=== PATIENT | male | born 1965 | race Caucasian/White ===

== ENCOUNTER 2022-05-24 18:07 | Inpatient (IN) | payer MEDICAID, SELFPAY ==
[2022-05-24] VITALS (8 sets, daily range): BP systolic 156–181; BP diastolic 84–101; PULSE 76–111; RESP 18–26; TEMP 36.4–36.7; O2SAT 92–96; BMI 35.9; BMI 28.8
[2022-05-24 18:39] LABS: Basophils # 0.1 10^3/uL (0.0-0.1); Basophils % 0.3 %; Hematocrit 39.2 % (42.0-52.0); Hemoglobin 13.4 g/dL (11.7-16.6); Lymphocytes # 1.8 10^3/uL (0.8-4.8); Lymphocytes % 7.3 %; Mean Corpuscular HGB Conc 34.2 g/dL (30.0-36.0); Mean Corpuscular Hemoglobin 29.8 pg (28.0-34.0); Mean Corpuscular Volume 87.3 fl (80-94); Mean Platelet Volume 9.9 fL (7.4-10.4); Monocytes # 0.9 10^3/uL (0.2-0.9); Monocytes % 3.6 %; Neutrophils # 22.08 10^3/uL (1.8-7.7); Neutrophils % 88.2 %; Nucleated Red Blood Cells % 0 %; Platelet Count 239 10^3/cmm (130-400); Red Blood Count 4.49 10^6/uL (4.1-5.3); Red Cell Distribution Width 13.2 % (12.1-15.1); White Blood Count 25.1 10^3/uL (4.0-10.0)
--- NOTE | 2022-05-24 18:48 | ED_ITS ---
HPI - General Adult General: Chief complaint: Abdominal Pain Stated complaint: abdomen pain and back pain Time Seen by Provider: 05/24/22 18:47 History of Present Illness: Patient is a 56-year-old male with a history of umbilical hernia presenting to the emergency room with acute onset of abdominal pain since yesterday at 3 PM. Patient said that he has had nausea/vomiting and significant diffuse abdominal pain. Patient noticed that her hernia has been stuck and thus was causing his pain. Patient also reports blood in the stool. Patient denies any cough, runny nose, sore throat, fever or chills. Patient denies any complaints at this time. No other prior abdominal surgery. Onset: 3pm yesterday Duration:ongoing Location:home Severity:moderate Associated symptoms: Reports nausea and vomiting; Deny chest pain, dyspnea, rash or palpitations Review of Systems Const: Denies: fever(s) or chills Eyes: Denies: change in vision ENMT: Denies: mouth pain Card: Denies: chest pain or palpitations Resp: Denies: dyspnea or non-productive cough GI: Reports: abdominal pain, nausea, vomiting and other (+blood in stool); Denies: diarrhea : Denies: dysuria Musc: Denies: extremity pain Skin/Breast: Denies: rash or new lesions Neuro: Denies: weakness in extremities Psych: Reports: other (Normal mood) Rajesh/Lymph: Denies: easy bruising [facility] ED PFSH: Medical History (Updated 05/25/22 @ 11:49 by Greyson Figueroa MD) Pneumatosis intestinalis After discussion with radiologist simonizer, it is a contained perforation of sigmoid colon. Umbilical hernia Social History Smoking and tobacco status: never smoked Alcohol intake: never Physical Exam Const: COMMON NORMALS: alert HENMT: COMMON NORMALS: atraumatic HEAD & SCALP: atraumatic MOUTH: moist mucous membranes not abnormal Eye: COMMON NORMALS: EOMs intact bilaterally and conjunctivae normal CONJUNCTIVA: Yes conjunctivae normal Neck/C-Spine: COMMON NORMALS: full ROM and supple Resp: COMMON NORMALS: normal respiratory effort and clear to auscultation bilaterally AUSCULTATION: clear to auscultation bilaterally Cardio: COMMON NORMALS: regular rate RATE: regular rate GI: COMMON NORMALS: Soft to palpation PALPATION: Yes Soft to palpation OTHER: + Moderate diffuse abdominal tenderness to palpation, umbilical hernia partially reducible. NO guarding rebound, guarding, rigidity. No CVA tenderness to percussion. Neg Mendez/Neg McBurney's point tenderness, no suprabupic tenderness to palpation. Extremity: COMMON NORMALS: full ROM Neuro: SENSORIUM/ORIENTATION: Yes alert MOTOR EXAM: No Abnormal motor strength present and Other motor observations present (no focal motor deficits) Psych: COMMON NORMALS: speech normal SPEECH: Yes normal speech MOOD & AFFECT: Yes euthymic mood Course Vital Signs: Vital signs: Vital Signs Temperature 97.4 F L 05/25/22 04:00 Pulse Rate 96 05/25/22 15:18 Respiratory Rate 16 05/25/22 15:40 Blood Pressure 159/92 05/25/22 15:18 Pulse Oximetry 91 05/25/22 15:40 Oxygen Delivery Me thod 05/25/22 15:18 MDM - General Adult Medical Decision Making 56-year-old male with history of umbilical hernia presenting to the emergency with diffuse abdominal pain, nausea vomiting and possible blood in the stool. On exam, patient has a partially reducible umbilical hernia. Patient has diffuse abdominal tenderness palpation. Patient is hemodynamically stable. White count 25.1. Given concerns for umbilical hernia incarceration vs s trangulation, I discussed immediately with Dr. Figueroa. Dr. Figueroa assessed patient at bedside recommend CT scan at this time. CT abdomen pelvis showed multiple areas of diverticulitis with pneumatosis intestinalis. Initially, patient was noted to have partial small bowel obstruction. Discussed all these findings with Dr. Figueroa who recommend n.p.o. at this time with IV antibiotics. Dr. Figueroa will decide whether to take patient to the OR tomorrow morning. Patient has NG tube placed. Disposition: admission Lab Data : 05/25/22 05:22 05/25/22 05:22 Radiology Impressions Abdomen/Pelvis CTA 05/24/22 19:19 IMPRESSION: 1. Sigmoid diverticulitis with matted loops of bowel. There is pneumatosis of bowel and colon and a probable loculated perforation. No gas in the portal vein or hepatic portal venous radicles. Underlying neoplasm may present a similar picture. 2. Partial small bowel obstruction with the point of transition in the pelvis at the site of diverticulitis. Other causes of obstruction such as intermittent or partial closed loop obstruction not excluded. 3. There is a [id number] amount of dense free fluid in the abdomen that may represent blood. 4. Bilateral inguinal hernias with a segment of descending colon and proximal sigmoid in the left inguinal hernia without evidence of obstruction. 5. Moderate recurrent umbilical hernia. 6. Cholelithiasis without acute cholecystitis. THIS REPORT CONTAINS FINDINGS THAT MAY BE CRITICAL TO PATIENT CARE. The findings were verbally communicated via telephone conference with QING DUNBAR at 9:17 PM CDT on 05/24/2022. The findings were acknowledged and understood. ADDENDUM: 05/24/222150 A 2nd review of the images was done in conference with . This is to clarify that the gas bubbles seen in the pelvis are likely related to diverticulitis with contained perforation and gas in the bowel and colonic lumen rather than pneumatosis. Chest X-Ray 05/24/22 22:38 IMPRESSION: NG tube in appropriate position. Small-bowel obstruction as seen on the previous exam. Laboratory Results WBC 25.1 10^3/uL (4.0-10.0) H 05/24/22 18:34 RBC 4.49 10^6/uL (4.1-5.3) 05/24/22 18:34 Hgb 13.4 g/dL (11.7-16.6) 05/24/22 18:34 Hct 39.2 % (42.0-52.0) L 05/24/22 18:34 MCV 87.3 fl (80-94) 05/24/22 18:34 MCH 29.8 pg (28.0-34.0) 05/24/22 18:34 MCHC 34.2 g/dL (30.0-36.0) 05/24/22 18:34 RDW 13.2 % (12.1-15.1) 05/24/22 18:34 Plt Count 239 10^3/cmm (130-400) 05/24/22 18:34 MPV 9.9 fL (7.4-10.4) 05/24/22 18:34 Neut % (Auto) 88.2 % 05/24/22 18:34 Lymph % (Auto) 7.3 % 05/24/22 18:34 [place] % (Auto) 3.6 % 05/24/22 18:34 Eos % (Auto) 0.0 % 05/24/22 18:34 Baso % (Auto) 0.3 % 05/24/22 18:34 Neut # (Auto) 22.08 10^3/uL (1.8-7.7) H 05/24/22 18:34 Lymph # (Auto) 1.8 10^3/uL (0.8-4.8) 05/24/22 18:34 [place] # (Auto) 0.9 10^3/uL (0.2-0.9) 05/24/22 18:34 Eos # (Auto) 0.0 10^3/uL (0.0-0.8) 05/24/22 18:34 Baso # (Auto) 0.1 10^3/uL (0.0-0.1) 05/24/22 18:34 Nucleated RBC % (auto) 0 % 05/24/22 18:34 Nucleated RBCs # 0.0 /100WBC 05/24/22 18:34 PT 14.40 SECONDS (12.1-14.9) 05/24/22 19:43 INR 1.08 (0.8-1.2) 05/24/22 19:43 APTT 17.2 SECONDS (23.9-36.7) L 05/24/22 19:43 Sodium 137 mmol/L (136-145) 05/24/22 18:54 Potassium 4.1 mmol/L (3.5-5.1) 05/24/22 18:54 Chloride 97 mmol/L (98-107) L 05/24/22 18:54 Carbon Dioxide 22 mmol/L (22-29) 05/24/22 18:54 Anion Gap 22.1 (5-19) H 05/24/22 18:54 BUN 20 mg/dL (6-20) 05/24/22 18:54 Creatinine 0.7 mg/dL (0.7-1.2) 05/24/22 18:54 GFR Calculation 116.2 mL/min (90-130) 05/24/22 18:54 Glucose 137 mg/dL (65-115) H 05/24/22 18:54 Calculated Osmolality 289 mOsm/kg (285-295) 05/24/22 18:54 Lactate 1.6 mmol/L (0.5-2.2) 05/24/22 18:34 Calcium 9.7 mg/dL (8.5-10.5) 05/24/22 18:54 Total Bilirubin 0.6 mg/dL (0.15-1.2) 05/24/22 18:54 AST 14 U/L (0-40) 05/24/22 18:54 ALT 11 U/L (0-41) 05/24/22 18:54 Alkaline Phosphatase 87 U/L (40-130) 05/24/22 18:54 C-Reactive Protein 284.4 mg/L (0.0-4.9) H 05/24/22 18:54 Total Protein 6.9 g/dL (6.6-8.7) 05/24/22 18:54 Albumin 4.1 g/dL (3.5-5.2) 05/24/22 18:54 Globulin 2.8 g/dL (1.3-4.6) 05/24/22 18:54 Lipase 8 U/L (13-60) L 05/24/22 18:54 TSH 3.02 uIU/mL (0.27-4.20) 05/24/22 18:54 Urine Color Yellow (Yellow) 05/24/22 21:10 Urine Appearance Clear (CLEAR) 05/24/22 21:10 Urine pH 5 (5-7) 05/24/22 21:10 Ur Specific [place] 1.010 (1.005-1.030) 05/24/22 21:10 Urine Protein 1+ (Negative) H 05/24/22 21:10 Urine Glucose (UA) Norm (Normal) 05/24/22 21:10 Urine Ketones Negative (Negative) 05/24/22 21:10 Urine Blood Neg (Negative) 05/24/22 21:10 Urine Nitrate Negative (Negative) 05/24/22 21:10 Urine Bilirubin Neg (Negative) 05/24/22 21:10 Urine Urobilinogen Norm mg/dL (Negative) 05/24/22 21:10 Ur Leukocyte Esterase Negative (Negative) 05/24/22 21:10 Urine RBC 0-4 /hpf (0-2) H 05/24/22 21:10 Urine WBC 0-4 /hpf (0-5) H 05/24/22 21:10 Ur Squamous Epith Cells 0-4 /hpf (0-5) H 05/24/22 21:10 Amorphous Sediment Not Reportable 05/24/22 21:10 Urine Bacteria Trace /hpf (NONE) 05/24/22 21:10 Urine Mucus Trace /hpf 05/24/22 21:10 Urine Sperm 1+ /hpf 05/24/22 21:10 Imaging Data Other Imaging: Radiologist's impression: [address] [address] [address] Scan Report Signed with Addenda Patient: Aman Villa Unit #: [id number] : 1965 Age/Sex: 56 / M ADM Date: 05/24/22 Loc: ER Room/Bed: Attending Dr: Ordering Provider/Ordering MD: Qing Dunbar MD Date of Service: 05/24/22 Procedure(s): CT angio abdomen pelvis 86676 Accession Number(s): [id number] Report Number: [id number]/CT angio abdomen pelvis 57164 A 2nd review of the images was done in conference with .? This is to clarify that the gas bubbles seen in the pelvis are likely related to diverticulitis with contained perforation and gas in the bowel and colonic lumen rather than pneumatosis. ? Addendum Dictated By: ?Ino Briscoe MD Addendum Signed By: ?Ino Briscoe MD Signed Date/Time: 05/24/222150 Addendum Cosigned By: ? PROCEDURE INFORMATION: Exam: CTA Abdomen and Pelvis With Contrast, GI Bleeding Exam date and time: 05/24/2022 7:48 PM Age: 56 years old Clinical indication: Abdominal pain; Periumbilical; Prior surgery; Surgery type: Umbilical hernia repair. Patient HX: Patient with history of umbilical hernia was lifting heavy objects today and had sudden onset of severe pain. Thinks he has reherniated. Having rectal bleeding. Patient diaphoretic. ; Additional info: Abd pain, blood in stool TECHNIQUE: Imaging protocol: Computed tomographic angiography of the abdomen and pelvis with contrast. 3D rendering (Not supervised by radiologist): MIP and/or 3D reconstructed images were created by the technologist. Radiation optimization: All CT scans at this facility use at least one of these dose optimization techniques: automated exposure control; mA and/or kV adjustment per patient size (includes targeted exams where dose is matched to clinical indication); or iterative reconstruction. Contrast material: OMNI 350; Contrast volume: 95 ml; Contrast route: INTRAVENOUS (IV);? COMPARISON: No relevant prior studies available. RADIATION DOSE METRICS: Total DLP (mGy-cm): 852.47 FINDINGS: Pleural space: The visualized lung bases demonstrate pleural based discoid atelectasis in the lingula and left lower lobe. Aorta: There is mild atherosclerotic calcification of the abdominal aorta and its branches without aneurysm. Celiac trunk and mesenteric arteries: No occlusion or significant stenosis. Renal arteries: No occlusion or significant stenosis. Right iliac arteries: Mild atherosclerotic plaques at the origin of the right common iliac artery with less than 50% stenosis. Left iliac arteries: Mild atherosclerotic plaques at the origin of the left common iliac artery with less than 50% stenosis. Liver: Normal in size. There are no enhancing liver masses. Gallbladder and bile ducts: There are multiple calcified gallstones. There is no significant gallbladder wall thickening or pericholecystic fluid. There is no evidence of biliary ductal dilation. Pancreas: Unremarkable. No mass. No ductal dilation. Spleen: Unremarkable. No splenomegaly. Adrenal glands: Normal. No mass. Kidneys and ureters: Unremarkable. No solid mass. No hydronephrosis. Stomach and bowel: There are multiple dilated loops of small bowel in the upper abdomen with mildly thickened tomlinson. There is mild diverticulosis of the ascending colon (series 17, image 71), descending colon (series 12, image 143) and sigmoid (series 12, image 68). In the mid sigmoid, there is a large area of contained perforation and matted bowel loops (series 12, images 151 -178; series 17, images 43-51). There is pneumatosis and a point of transition. Findings suggest a developing abscess (series 12, images 155 - 179; series 17, images 42 - 52). Underlying neoplasm is not excluded. Appendix: No evidence of appendicitis. Intraperitoneal space: There is a small amount of blood in the peritoneal cavity surrounding the lower tip of the liver and bilateral paracolic gutters. There is no free air and no gas in the portal vein or hepatic portal venous radicles. Lymph nodes: Unremarkable. No enlarged lymph nodes. Urinary bladder: There is mild concentric thickening of the bladder wall that may be secondary to cystitis or underdistension. Reproductive: Unremarkable as visualized. Bones/joints: There is a mild stenosis in the proximal celiac trunk, likely related to an impression by the arcuate ligament. Soft tissues: There is a moderate-sized umbilical hernia containing adipose tissue. There are bilateral inguinal hernias. In the moderate-sized left inguinal hernia, there is a segment of descending colon and proximal sigmoid without evidence of obstruction. CT/CT angio abdomen pelvis 14513 IMPRESSION: 1. Sigmoid diverticulitis with matted loops of bowel. There is pneumatosis of bowel and colon and a probable loculated perforation. No gas in the portal vein or hepatic portal venous radicles.? Underlying neoplasm may present a similar picture. 2. Partial small bowel obstruction with the point of transition in the pelvis at the site of diverticulitis.? Other causes of obstruction such as intermittent or partial closed loop obstruction not excluded. 3. There is a ukqa-sn-hoezbwjv amount of dense free fluid in the abdomen that may represent blood. 4. Bilateral inguinal hernias with a segment of descending colon and proximal sigmoid in the left inguinal hernia without evidence of obstruction. 5. Moderate recurrent umbilical hernia. 6. Cholelithiasis without acute cholecystitis. ? THIS REPORT CONTAINS FINDINGS THAT MAY BE CRITICAL TO PATIENT CARE. The findings were verbally communicated via telephone conference with QING DUNBAR at 9:17 PM CDT on 05/24/2022. The findings were acknowledged and understood. ? 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
[2022-05-24] MEDS: sodium chloride 0.9% 1,000 ML 999 ML IV (18:59)
[2022-05-24] MEDS: HYDROmorphone 1 mg/mL INJ 1 mL 0.5 MG IVP (19:00)
[2022-05-24 19:06] LABS: Lactate (Lactic Acid level) 1.6 mmol/L (0.5-2.2)
--- NOTE | 2022-05-24 19:19 | CTR_ITS ---
PROCEDURE INFORMATION: Exam: CTA Abdomen and Pelvis With Contrast, GI Bleeding Exam date and time: 05/24/2022 7:48 PM Age: 56 years old Clinical indication: Abdominal pain; Periumbilical; Prior surgery; Surgery type: Umbilical hernia repair. Patient HX: Patient with history of umbilical hernia was lifting heavy objects today and had sudden onset of severe pain. Thinks he has reherniated. Having rectal bleeding. Patient diaphoretic. ; Additional info: Abd pain, blood in stool TECHNIQUE: Imaging protocol: Computed tomographic angiography of the abdomen and pelvis with contrast. 3D rendering (Not supervised by radiologist): MIP and/or 3D reconstructed images were created by the technologist. Radiation optimization: All CT scans at this facility use at least one of these dose optimization techniques: automated exposure control; mA and/or kV adjustment per patient size (includes targeted exams where dose is matched to clinical indication); or iterative reconstruction. Contrast material: OMNI 350; Contrast volume: 95 ml; Contrast route: INTRAVENOUS (IV); COMPARISON: No relevant prior studies available. RADIATION DOSE METRICS: Total DLP (mGy-cm): 852.47 FINDINGS: Pleural space: The visualized lung bases demonstrate pleural based discoid atelectasis in the lingula and left lower lobe. Aorta: There is mild atherosclerotic calcification of the abdominal aorta and its branches without aneurysm. Celiac trunk and mesenteric arteries: No occlusion or significant stenosis. Renal arteries: No occlusion or significant stenosis. Right iliac arteries: Mild atherosclerotic plaques at the origin of the right common iliac artery with less than 50% stenosis. Left iliac arteries: Mild atherosclerotic plaques at the origin of the left common iliac artery with less than 50% stenosis. Liver: Normal in size. There are no enhancing liver masses. Gallbladder and bile ducts: There are multiple calcified gallstones. There is no significant gallbladder wall thickening or pericholecystic fluid. There is no evidence of biliary ductal dilation. Pancreas: Unremarkable. No mass. No ductal dilation. Spleen: Unremarkable. No splenomegaly. Adrenal glands: Normal. No mass. Kidneys and ureters: Unremarkable. No solid mass. No hydronephrosis. Stomach and bowel: There are multiple dilated loops of small bowel in the upper abdomen with mildly thickened tomlinson. There is mild diverticulosis of the ascending colon (series 17, image 71), descending colon (series 12, image 143) and sigmoid (series 12, image 68). In the mid sigmoid, there is a large area of contained perforation and matted bowel loops (series 12, images 151 -178; series 17, images 43-51). There is pneumatosis and a point of transition. Findings suggest a developing abscess (series 12, images 155 - 179; series 17, images 42 - 52). Underlying neoplasm is not excluded. Appendix: No evidence of appendicitis. Intraperitoneal space: There is a small amount of blood in the peritoneal cavity surrounding the lower tip of the liver and bilateral paracolic gutters. There is no free air and no gas in the portal vein or hepatic portal venous radicles. Lymph nodes: Unremarkable. No enlarged lymph nodes. Urinary bladder: There is mild concentric thickening of the bladder wall that may be secondary to cystitis or underdistension. Reproductive: Unremarkable as visualized. Bones/joints: There is a mild stenosis in the proximal celiac trunk, likely related to an impression by the arcuate ligament. Soft tissues: There is a moderate-sized umbilical hernia containing adipose tissue. There are bilateral inguinal hernias. In the moderate-sized left inguinal hernia, there is a segment of descending colon and proximal sigmoid without evidence of obstruction. CT/CT angio abdomen pelvis 32383 IMPRESSION: 1. Sigmoid diverticulitis with matted loops of bowel. There is pneumatosis of bowel and colon and a probable loculated perforation. No gas in the portal vein or hepatic portal venous radicles. Underlying neoplasm may present a similar picture. 2. Partial small bowel obstruction with the point of transition in the pelvis at the site of diverticulitis. Other causes of obstruction such as intermittent or partial closed loop obstruction not excluded. 3. There is a vtoo-kz-yehysicc amount of dense free fluid in the abdomen that may represent blood. 4. Bilateral inguinal hernias with a segment of descending colon and proximal sigmoid in the left inguinal hernia without evidence of obstruction. 5. Moderate recurrent umbilical hernia. 6. Cholelithiasis without acute cholecystitis. THIS REPORT CONTAINS FINDINGS THAT MAY BE CRITICAL TO PATIENT CARE. The findings were verbally communicated via telephone conference with ZACHARIAH ACUNA at 9:17 PM KISHORE on 05/24/2022. The findings were acknowledged and understood.
[2022-05-24] MEDS: ondansetron 2 mg/ML SDV 2 mL 4 MG IVP (19:22)
--- NOTE | 2022-05-24 19:24 | P.CONIM_ITS ---
Providers/Reason For Consult Consulting Physician/Specialty*: Greyson Figueroa MD Reason for Consult*: Partially incarcerated umbilical hernia Requesting Physician: Dr. Dunbar History of Present Illness History of Present Illness Mr. Aman Villa is a pleasant 56 year old male presents to the ER with worsening abdominal pain mostly in the center of his abdomen since yesterday afternoon patient reports that the pain is being sharp and referred to the back and nothing seems to make it better or worse, reports also history of bleeding per rectum that has been intermittent. Which is nothing new to him. His last colonoscopy was 20 years ago and nothing is remarkable about it per his description. No evidence of nausea or vomiting, patient is drenching in sweat during the clinical encounter. Blood work was obtained and showed WBC count of 25.1, hemoglobin of 13.4, hematocrit 39.2 neutrophils 22.08 and a lactate 1.6. CT scan is pending of the abdomen and pelvis which was switched to CTA due to my concern that the patient may have an underlying aortic dissection, after further discussion with Dr. Dunbar in the ER. Patient was seen and evaluated in the ER room #6 CT report; 1. Sigmoid diverticulitis with matted loops of bowel. There is pneumatosis of bowel and colon and a probable loculated perforation. No gas in the portal vein or hepatic portal venous radicles.? Underlying neoplasm may present a similar picture. 2. Partial small bowel obstruction with the point of transition in the pelvis at the site of diverticulitis.? Other causes of obstruction such as intermittent or partial closed loop obstruction not excluded. 3. There is a irnu-ii-ukeuouao amount of dense free fluid in the abdomen that may represent blood. 4. Bilateral inguinal hernias with a segment of descending colon and proximal sigmoid in the left inguinal hernia without evidence of obstruction. 5. Moderate recurrent umbilical hernia. 6. Cholelithiasis without acute cholecystitis. Review of Systems General: Reports: 10 or more systems reviewed and unremarkable except in HPI and below Medications/Allergies Allergies Allergy/AdvReac Type Severity Reaction Status Date / Time Penicillins Allergy ALGY-Anaphy Verified 05/24/22 18:21 laxis Current Medications Generic Name Dose Route Start Last Admin Trade Name Freq PRN Reason Stop Dose Admin Sodium Chloride 1,000 mls @ 999 mls/hr 05/24/22 18:48 05/24/22 18:59 Sodium Chloride 0.9% IV 05/24/22 19:48 999 mls/hr .Q1H1M ONE Administration PFSH Acute PFSH: Medical History Umbilical hernia Social History Smoking and tobacco status: never smoked Alcohol intake: never Vitals/I&O/Wt Last Vital Signs Temp 97.6 F 05/24/22 18:21 Pulse 111 H 05/24/22 18:21 Resp 20 H 05/24/22 18:21 BP 156/101 05/24/22 18:21 Pulse Ox 96 05/24/22 18:21 Weight last 48 hrs Weight 250 lb Physical Exam Const: COMMON NORMALS: no acute distress and patient oriented x3 GENERAL APPEARANCE: cooperative ORIENTATION/CONSCIOUSNESS: Yes awake, Yes oriented to person, Yes oriented to place and Yes oriented to time HENMT: COMMON NORMALS: normocephalic HEAD & SCALP: normocephalic Eye: COMMON NORMALS: Equal, round and reactive pupils present and no scleral icterus PUPIL: Yes Equal, round and reactive pupils present Lymph: LYMPHATIC: no lymphadenopathy noted Chest: COMMONS NORMALS: normal inspection of the chest Resp: COMMON NORMALS: normal respiratory effort and clear to auscultation bilaterally AUSCULTATION: clear to auscultation bilaterally Cardio: COMMON NORMALS: S1 normal heart sound present and S2 normal heart sound present; negative for No murmurs present (Cardio) HEART SOUNDS: S1 normal heart sound present and S2 normal heart sound present GI: COMMON NORMALS: Soft to palpation; negative for No hepatosplenomegaly present INSPECTION: Yes normal to inspection PALPATION: Yes Soft to palpation, No Firmness to palpation present (GI), Yes Tenderness to palpation present (GI) (At the periumbilical area) Details: LLQ, No Guarding due to palpation present (GI), No Rigid due to palpation, No No hepatosplenomegaly present and Yes Hernia present umbilical (Partially reducible umbilical hernia) Neuro: COMMON NORMALS: patient oriented x3 SENSORIUM/ORIENTATION: Yes oriented to person, Yes oriented to place and Yes oriented to time Psych: COMMON NORMALS: mental status grossly normal Skin: COMMON NORMALS: no rashes or lesions noted GENERAL SKIN EXAM: no rashes or lesions noted Data : 05/24/22 18:34 05/24/22 18:54 A&P Assessment and plan (1) Abdominal pain: After thorough history physical examination and reviewing the chart. We will fo llow on the stat CTA of the abdomen to rule out potential aortic dissection. Further evaluating the patient shows tenderness at the left lower quadrant in the light of the CT scan of the abdomen pelvis no acute evidence of incarceration of the umbilical hernia yet there is concern about diverticulitis of the sigmoid colon. And component of enteritis. Gallbladder stones without evidence of acute cholecystitis. Left inguinal hernia without bowel incarceration. Final report is pending at 8:18 PM We will start the patient on ciprofloxacin and Flagyl and admit for observation, patient was updated on the preliminary read of the CT of the abdomen pelvis also keep n.p.o. with IV fluid resuscitation and pain control. Repeated physical examination Repeat CBC and BMP in the a.m. Strict I's and O Assurance and education All questions have been answered and all concerns have been addressed to patient's satisfaction. 1. Sigmoid diverticulitis with matted loops of bowel. There is pneumatosis of bowel and colon and a probable loculated perforation. No gas in the portal vein or hepatic portal venous radicles.? Underlying neoplasm may present a similar picture. 2. Partial small bowel obstruction with the point of transition in the pelvis at the site of diverticulitis.? Other causes of obstruction such as intermittent or partial closed loop obstruction not excluded. 3. There is a lkul-rj-drmeiivb amount of dense free fluid in the abdomen that may represent blood. 4. Bilateral inguinal hernias with a segment of descending colon and proximal sigmoid in the left inguinal hernia without evidence of obstruction. 5. Moderate recurrent umbilical hernia. 6. Cholelithiasis without acute cholecystitis. At 09:50 pm Discussed with radiologist relationship assoc [facility]ne[facility] that did Review the findings of the CT scan and his use of the word pneumatosis is more translating the localized perforation rather than an actual pneumatosis of the bowel wall. He further recommended a follow-up CT scan down the road with oral contrast.to assess potential carcinoid or other neoplasia. 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
[2022-05-24] MEDS: iohexol 350 mg/mL 100 mL Btl IV (20:03)
[2022-05-24 20:10] LABS: INR 1.08 (0.8-1.2)
[2022-05-24 20:18] LABS: Partial Thromboplastin Time 17.2 SECONDS (23.9-36.7)
[2022-05-24 20:28] LABS: Alanine Aminotransferase 11 U/L (0-41); Albumin Level 4.1 g/dL (3.5-5.2); Alkaline Phosphatase 87 U/L (40-130); Anion Gap 22.1 (5-19); Aspartate Amino Transferase 14 U/L (0-40); Blood Urea Nitrogen 20 mg/dL (6-20); Calcium 9.7 mg/dL (8.5-10.5); Carbon Dioxide 22 mmol/L (22-29); Chloride 97 mmol/L (98-107); Globulin 2.8 g/dL (1.3-4.6); Glomerular Filtration Rate 116.2 mL/min (90-130); Glucose 137 mg/dL (65-115); Lipase 8 U/L (13-60); Osmolality Calculated 289 mOsm/kg (285-295); Potassium 4.1 mmol/L (3.5-5.1); Sodium 137 mmol/L (136-145); Total Bilirubin 0.6 mg/dL (0.15-1.2); Total Protein 6.9 g/dL (6.6-8.7)
[2022-05-24] MEDS: ciprofloxacin 400 MG/200 ML PREMIX 200 MG IV (21:04)
[2022-05-24] MEDS: cefepime 1,000 MG in sodium chloride 0.9% (plus) 50 ML 100 MG IV (21:05)
[2022-05-24] MEDS: metroNIDAZOLE IV 500 MG/100 ML PREMIX 100 MG IV (21:28)
[2022-05-24] MEDS: lactated ringers 1,000 ML 125 ML IV (21:42)
[2022-05-24] MEDS: HYDROmorphone 1 mg/mL INJ 1 mL IVP (21:43)
[2022-05-24 21:57] LABS: Add Urine Culture? No; Add Urine Microscopic? YES; Bacteria Urine TRACE /hpf; Bilirubin Urine Neg (Negative); Blood Urine Neg (Negative); Glucose Urine UA Norm (Normal); Ketones Urine Negative (Negative); Leukocyte Esterase Urine Negative (Negative); Mucus Urine TRACE /hpf; Nitrate Urine Negative (Negative); Protein Urine 1+ (Negative); RBC Urine 0-4 /hpf (0-2); Sperm Urine 1+ /hpf; Squamous Epithelial Cell Urine 0-4 /hpf (0-5); Urine Appearance Clear (CLEAR); Urine Color Yellow (Yellow); Urobilinogen Urine Norm (Negative); WBC Urine 0-4 /hpf (0-5); pH Urine 5 (5-7)
--- NOTE | 2022-05-24 21:57 | PM.HP ---
Providers/Chief Complaint Chief Complaint: abdomen pain and back pain History of Present Illness Aman Villa is a 56 year old male with no significant past medical history, history of smoking, seasonal allergies, who presents to [facility] for abdominal pain. He tells me that his last bowel movement was 3 days ago, is not able to keep down solids or liquids, complains of chills, no fevers, he does have a history of ventral hernia, has had it for the last 10 years, he tells is never really given him a problem. Denies drinking alcohol, no abdominal surgeries.. No cardiovascular history. No history of of COPD. No history of strokes. No history of diabetes. Review of Systems Card: Denies: chest pain Resp: Denies: dyspnea GI: Reports: abdominal pain, nausea and vomiting : Denies: difficulty urinating Medications/Allergies Allergies Allergy/AdvReac Type Severity Reaction Status Date / Time Penicillins Allergy ALGY-Anaphy Verified 05/24/22 18:21 laxis PFSH Acute PFSH: Medical History Umbilical hernia Social History Smoking and tobacco status: never smoked Alcohol intake: never Vitals/I&O/Wt Last Vital Signs Temp 97.6 F 05/24/22 18:21 Pulse 94 05/24/22 21:00 Resp 22 H 05/24/22 21:43 BP 165/84 05/24/22 21:00 Pulse Ox 95 05/24/22 21:00 O2 Del Method 05/24/22 20:40 Weight last 48 hrs Weight 113.398 kg Physical Exam Const: COMMON NORMALS: no acute distress and patient oriented x3 HENMT: COMMON NORMALS: normocephalic HEAD & SCALP: normocephalic Neck/C-Spine: COMMON NORMALS: no JVD Resp: COMMON NORMALS: normal respiratory effort, No retractions, No use of accessory muscles and clear to auscultation bilaterally AUSCULTATION: clear to auscultation bilaterally Cardio: COMMON NORMALS: no JVD, regular rate, regular rhythm, S1 normal heart sound present and S2 normal heart sound present RATE: regular rate RHYTHM: regular rhythm HEART SOUNDS: S1 normal heart sound present and S2 normal heart sound present GI: INSPECTION: Yes normal to inspection AUSCULTATION: Yes Hypoactive bowel sounds present PALPATION: Yes Soft to palpation, Yes Tenderness to palpation present (GI) (Diffuse tenderness), No Guarding due to palpation present (GI), No Rigid due to palpation and Yes No hepatosplenomegaly present OTHER: Ventral hernia present, reducible, slight discoloration over hernia, Extremity: COMMON NORMALS: capillary refill normal, no clubbing, cyanosis or edema, no calf tenderness and no pedal edema Neuro: COMMON NORMALS: patient oriented x3, CN's II-XII intact bilaterally and moves all extremities Psych: COMMON NORMALS: mental status grossly normal Data : 05/24/22 18:34 05/24/22 18:54 A&P Assessment and plan (1) Diverticulitis: Status: Acute (2) Partial obstruction of small intestine: Status: Acute (3) Abdominal pain: Status: Acute Plan Abdominal pain 1. Sigmoid diverticulitis with matted loops of bowel. There is pneumatosis of bowel and colon and a probable loculated perforation. No gas in the portal vein or hepatic portal venous radicles.? Underlying neoplasm may present a similar picture. 2. Partial small bowel obstruction with the point of transition in the pelvis at the site of diverticulitis.? Other causes of obstruction such as intermittent or partial closed loop obstruction not excluded. 3. There is a hwcj-ff-evzroqwk amount of dense free fluid in the abdomen that may represent blood. 4. Bilateral inguinal hernias with a segment of descending colon and proximal sigmoid in the left inguinal hernia without evidence of obstruction. 5. Moderate recurrent umbilical hernia. 6. Cholelithiasis without acute cholecystitis. Plan -General surgery has been consulted -Continue IV fluids -Zofran for nausea -Dilaudid for pain control -Cipro and Flagyl -Blood cultures -Full code SCDs for DVT prophylaxis, in case surgery is required - Attestations Medical Necessity Statement*: Patient requires hospitalization, inpatient, greater than 2 minutes, abdominal Coding Level of Care Code Acute Supervisor Mail Carriers for [facility] Fwd Diagnoses Diverticulitis K57.92 Partial obstruction of small intestine K56.600 Abdominal pain R10.9
--- NOTE | 2022-05-24 22:38 | XRR_ITS ---
PROCEDURE INFORMATION: Exam: XR Chest Exam date and time: 05/24/2022 10:09 PM Age: 56 years old Clinical indication: Device placement; Ng tube; Patient HX: Check S/P ng placement TECHNIQUE: Imaging protocol: Radiologic exam of the chest. Views: 1 view. COMPARISON: CT angio abdomen pelvis [id number] 05/24/2022 7:48 PM FINDINGS: Tubes, catheters and devices: There is an NG tube projecting along expected course of the esophagus with its tip and sidehole in the stomach. Lungs: Unremarkable. No consolidation. Mild atelectasis at the left lung base. Pleural spaces: Unremarkable. No pleural effusion. No pneumothorax. Heart/Mediastinum: Unremarkable. No cardiomegaly. Bones/joints: Unremarkable. Gastrointestinal tract: Multiple loops of small bowel consistent with small-bowel obstruction seen on the previous CT. XR/XR chest 1V portable [id number] IMPRESSION: NG tube in appropriate position. Small-bowel obstruction as seen on the previous exam.
[2022-05-24 22:52] LABS: C Reactive Protein 284.4 mg/L (0.0-4.9)
[2022-05-24] MEDS: pantoprazole 40 mg SDV IVP (23:10)
[2022-05-24] MEDS: morphine 4 mg/mL SDV 1 mL 2 MG IVP (23:10)
[2022-05-24 23:41] LABS: Thyroid Stimulating Hormone 3.02 uIU/mL (0.27-4.20)
[2022-05-25] VITALS (16 sets, daily range): BP systolic 135–171; BP diastolic 78–92; PULSE 74–96; RESP 15–24; TEMP 36.3–36.7; O2SAT 91–97
[2022-05-25] MEDS: morphine 4 mg/mL SDV 1 mL 2 MG IVP ×4 (03:18→10:14)
[2022-05-25] MEDS: metroNIDAZOLE IV 500 MG/100 ML PREMIX 100 MG IV ×3 (03:22→22:08)
[2022-05-25] MEDS: lactated ringers 1,000 ML 125 ML IV ×3 (04:19→20:30)
[2022-05-25] MEDS: ondansetron 2 mg/ML SDV 2 mL 4 MG IVP ×2 (05:41→11:27)
[2022-05-25 05:57] LABS: Basophils % 0.2 %; Hematocrit 32.4 % (42.0-52.0); Hemoglobin 10.9 g/dL (11.7-16.6); Lymphocytes # 0.9 10^3/uL (0.8-4.8); Lymphocytes % 5.6 %; Mean Corpuscular HGB Conc 33.6 g/dL (30.0-36.0); Mean Corpuscular Hemoglobin 30.5 pg (28.0-34.0); Mean Corpuscular Volume 90.8 fl (80-94); Mean Platelet Volume 10.2 fL (7.4-10.4); Monocytes # 0.7 10^3/uL (0.2-0.9); Monocytes % 4.2 %; Neutrophils # 14.19 10^3/uL (1.8-7.7); Neutrophils % 89.3 %; Nucleated Red Blood Cells % 0 %; Platelet Count 168 10^3/cmm (130-400); Red Blood Count 3.57 10^6/uL (4.1-5.3); Red Cell Distribution Width 13.2 % (12.1-15.1); White Blood Count 15.9 10^3/uL (4.0-10.0)
[2022-05-25 06:27] LABS: INR 1.28 (0.8-1.2)
[2022-05-25 06:36] LABS: Alanine Aminotransferase 8 U/L (0-41); Albumin Level 3.1 g/dL (3.5-5.2); Alkaline Phosphatase 70 U/L (40-130); Anion Gap 13.9 (5-19); Aspartate Amino Transferase 9 U/L (0-40); Blood Urea Nitrogen 15 mg/dL (6-20); Calcium 8.8 mg/dL (8.5-10.5); Carbon Dioxide 27 mmol/L (22-29); Chloride 99 mmol/L (98-107); Globulin 2.2 g/dL (1.3-4.6); Glomerular Filtration Rate 116.2 mL/min (90-130); Glucose 99 mg/dL (65-115); Magnesium 1.5 mg/dL (1.7-2.3); Osmolality Calculated 283 mOsm/kg (285-295); Potassium 3.9 mmol/L (3.5-5.1); Sodium 136 mmol/L (136-145); Total Bilirubin 0.4 mg/dL (0.15-1.2); Total Protein 5.3 g/dL (6.6-8.7)
[2022-05-25 06:40] LABS: Phosphorus 2.2 mg/dL (2.5-4.5)
--- NOTE | 2022-05-25 08:00 | PC.NURSE ---
Allergy bracelet applied.
[2022-05-25] MEDS: ciprofloxacin 400 MG/200 ML PREMIX 200 MG IV ×2 (08:07→20:26)
[2022-05-25 08:18] LABS: Carcinoembryonic Antigen 5.5 ng/mL (0.0-4.7)
[2022-05-25 08:41] LABS: NT Pro B Type Natriuretic Pept 71 pg/mL (0-125); Procalcitonin 1.98 ng/mL (0-0.5)
--- NOTE | 2022-05-25 10:56 | P.PN_ITS ---
Subjective Subjective: Pt in severe abdominal pain. Also complain of dry mouth and wanting water. Vitals/I&O/Wt Last Vital Signs Temp 97.4 F L 05/25/22 04:00 Pulse 83 05/25/22 08:00 Resp 18 05/25/22 10:14 BP 171/87 05/25/22 08:00 Pulse Ox 94 05/25/22 08:00 O2 Del Method 05/25/22 08:00 05/24/22 05/25/22 05/25/22 22:59 06:59 14:59 Intake Total 2277.083 / 2277.083 937.5 / 937.5 Output Total 750 / 750 Balance 1527.083 / 1527.083 937.5 / 937.5 Weight last 48 hrs Weight 91.127 kg Weight 113.398 kg Physical Exam Narrative: Patient is in moderate distress due to pain. He has difficulty sitting still due to this pain Heart regular normal S1-S2 without murmurs clicks gallops or rubs Lungs: Clear to auscultation anteriorly Abdomen: Appears distended. Very tender to light touch throughout abdomen umbilical hernia present. Extremities no clubbing cyanosis or edema Data : 05/25/22 05:22 05/25/22 05:22 Micro: Microbiology 05/24/22 23:07 Blood Culture - Preliminary Blood SPECIMEN COLLECTED 05/24/22 23:04 Blood Culture - Preliminary Blood SPECIMEN COLLECTED CT Abd/Pel: Radiologist's impression: IMPRESSION: 1. Sigmoid diverticulitis with matted loops of bowel. There is pneumatosis of bowel and colon and a probable loculated perforation. No gas in the portal vein or hepatic portal venous radicles.? Underlying neoplasm may present a similar picture. 2. Partial small bowel obstruction with the point of transition in the pelvis at the site of diverticulitis.? Other causes of obstruction such as intermittent or partial closed loop obstruction not excluded. 3. There is a tmbi-ar-eshgdest amount of dense free fluid in the abdomen that may represent blood. 4. Bilateral inguinal hernias with a segment of descending colon and proximal sigmoid in the left inguinal hernia without evidence of obstruction. 5. Moderate recurrent umbilical hernia. 6. Cholelithiasis without acute cholecystitis. A&P Assessment and plan (1) Hemoperitoneum: defer to surgery Status: Acute (2) Pneumatosis intestinalis: defer to surgery Status: Acute (3) Diverticulitis: usual tx of abx, IVF and bowel rest Status: Acute (4) Partial obstruction of small intestine: per CT report appears at site of sigmoid diverititis NGT and as above Status: Acute (5) Abdominal pain: Severe and MSO4 2 mg every 2 h is inadequate. Stat dose of morphine 10 mg and increase to 4 mg every 2. Will add dilaudid iv prn too. Note we do not have a SENIOR CONSUMER INSIGHTS CONSULTANT pump at this hospital Status: Acute Plan LM for Dr. Vilchis to call. Attestations Medical Necessity Statement*: Pt with an acute abdomen. Life threatening. Coding Level of Care Code Acute Reference Library Assistant for [facility] Fwd Diagnoses Hemoperitoneum K66.1 Pneumatosis intestinalis K63.89 Diverticulitis K57.92 Partial obstruction of small intestine K56.600 Abdominal pain R10.9
[2022-05-25] MEDS: morphine 4 mg/mL SDV 1 mL 10 MG IVP (11:27)
--- NOTE | 2022-05-25 11:44 | PM.PN ---
Subjective Subjective: Patient overall feels better.huber seen by me yesterday late evening. Physical examination was done around 6:30 AM, leukocytosis is trending down. CEA was requested Medications: Reviewed: Yes Vitals/I&O/Wt Last Vital Signs Temp 97.4 F L 05/25/22 04:00 Pulse 92 05/25/22 11:32 Resp 18 05/25/22 11:32 BP 166/86 05/25/22 11:32 Pulse Ox 92 05/25/22 11:32 O2 Del Method 05/25/22 11:32 05/24/22 05/25/22 05/25/22 22:59 06:59 14:59 Intake Total 2277.083 / 2277.083 937.5 / 937.5 Output Total 750 / 750 Balance 1527.083 / 1527.083 937.5 / 937.5 Weight last 48 hrs Weight 200 lb 14.4 oz Weight 250 lb Physical Exam Narrative: Patient is conscious alert oriented X3 No apparent distress BMI 29 Head and neck examination PERRLA no masses no cervical lymphadenopathy no jaundice Cardiac examination audible S1-S2 no murmurs no gallops no arrhythmias Chest is clear bilateral,abscence of Rhonchi or wheezes,no surgical emphysema Abdomen less tender nondistended soft no organomegaly guarding or rigidity/no signs of peritonitis Extremities no cyanosis no clubbing no edema Data : 05/25/22 05:22 05/25/22 05:22 Micro: Microbiology 05/24/22 23:07 Blood Culture - Preliminary Blood SPECIMEN COLLECTED 05/24/22 23:04 Blood Culture - Preliminary Blood SPECIMEN COLLECTED A&P Assessment and plan (1) Diverticulitis large intestine: During the course of the day as I did examine the patient on 6:30 AM in the morning and I reexamined him now around 12:15 PM. Originally had felt better and now he is saying that he has more pain towards the right side of the abdomen, and his urine is concentrated. I did review the CT scan images with Dr. Dhaliwal our radiologist just few minutes before coming and visiting with the patient now and he confirmed that the perforation of the sigmoid colon is localized and there is no free air otherwise or a distinct abscess formation. I did discuss the case over the phone with Dr. Beyer as adjustment of pain medications have been done by her, and while I will give the patient a bolus of LR and reevaluate him in couple of hours, Continue with the broad-spectrum IV antibiotic I did discuss with the patient about the plan with regard to conservative measures versus surgical intervention if he is getting worse in the form of diagnostic laparoscopy possible laparotomy with possible colostomy and bowel resection. Plan of care has been discussed with the patient and his spouse and they agreed accordingly. We will continue coordinating care with hospitalist service. Assurance and education All questions have been answered and all concerns have been addressed to patient's satisfaction. 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
--- NOTE | 2022-05-25 12:00 | PC.CHAP ---
Pastoral Care Encounter/Spiritual Assessment Type of Contact [] Declined motorcycle racer visit [] Patient/Family/Request visit [] Outpatient visit [] Follow-up visit [] Physician referral [] Code/Alert [x [] Out of room [] Palliative care [] [x] Receiving care in room [] Pre-surgical visit [] Trauma [] Long length of stay [] ICU visit [] Other: Relational/Emotional Strength [] Patient feels connected with others/family/visitors/staff [] Distress [] Loneliness/isolation [] Abandonment Spirituality of Patient [] Person of Zofia [] Attends Methodist of their Zofia [] Believes in Prayer [] Reads Bible or Hindu materials [] There are Spiritual issues to be addressed Tie Tape Machine Operator Interventions [] Prayer [] Active listening [] Non-anxious presence [] Spiritual/emotional support [] Crisis/trauma care [] Spiritual counseling [] Bereavement support [] Provided bereavement packet [] Provided Bible/devotional materials [] Provided toy/stuffed animal, coloring book to patient or family member [] Provided Communion [] Anointing/[place] [] Salvation [] Completed spiritual assessment [] Other: Impact on Illness or Injury [] Angry [] Fearful [] Anxious [] Often cries [] Exhaustion [] Unable to work [] Unable to attend yazdanism [] Unable to walk/stand [] Unable to read [] Unable to drive [] Unable to eat/drink [] Unable to sleep [] Unable to be with family [] Patient intubated [] Other: Summary Time spent with patient
[2022-05-25] MEDS: lactated ringers 1,000 ML 999 ML IV (13:18)
[2022-05-25] MEDS: morphine 4 mg/mL SDV 1 mL IVP ×2 (15:40→19:58)
--- NOTE | 2022-05-25 17:00 | PC.NURSE ---
Pt ambulated around unit without difficulty. Linen and gown change provied. NG leaked. Linen and gown change competed again. Dr Vilchis rounding with pt. NG back to LIS, suction adjusted immediate drainage of over 1000ml. Dr Vilchis notified or drainge amount. Dr Vilchis came back to room to re-evaluate pt and drainage.
--- NOTE | 2022-05-25 19:29 | PC.NURSE ---
Shift Note: Pt rested in bed for most of the day. He did get up to ambulate this evening without difficultly. NG remains in place right nostril. 1020ml of dark red drainage noted this shift. Zofran admin once for nausea. this shift. Pt has belched frequently early on this shift. Pain control was an issue tis am, he received 10mg Morphine around noon and was able to rest with eyes closed for a few hours. Stated he felt much better. He only needed Morphine for pain once (4mg) this afternoon. Urine remains dark yellow to isabella in color. He received a liter of LR bolus today. Frequent safety and comfort rounds continue. Orders and/or nursing care completed as indicated. Patient monitored for response to intervention and treatment(s). Education provided includes morphine, zofran , ciprofloxacin, flagyl, ambulation relaxation techniques and plan of care.. Patient and/or enrollment eligibility representative verbalized understanding of plan of care and medications. Will continue to monitor.
[2022-05-25] MEDS: pantoprazole 40 mg SDV IVP (22:29)
[2022-05-26] VITALS (12 sets, daily range): BP systolic 130–153; BP diastolic 77–90; PULSE 77–104; RESP 13–19; TEMP 36.3–37.1; O2SAT 92–98
[2022-05-26] MEDS: lactated ringers 1,000 ML 125 ML IV ×2 (00:33→13:06)
[2022-05-26] MEDS: morphine 4 mg/mL SDV 1 mL IVP ×4 (01:34→20:45)
[2022-05-26] MEDS: metroNIDAZOLE IV 500 MG/100 ML PREMIX 100 MG IV ×3 (04:25→20:46)
[2022-05-26 04:59] LABS: Basophils % 0.3 %; Eosinophils # 0.1 10^3/uL (0.0-0.8); Eosinophils % 0.9 %; Hemoglobin 11.7 g/dL (11.7-16.6); Lymphocytes # 0.7 10^3/uL (0.8-4.8); Lymphocytes % 5.6 %; Mean Corpuscular HGB Conc 33.4 g/dL (30.0-36.0); Mean Corpuscular Hemoglobin 29.8 pg (28.0-34.0); Mean Corpuscular Volume 89.3 fl (80-94); Mean Platelet Volume 9.9 fL (7.4-10.4); Monocytes # 0.7 10^3/uL (0.2-0.9); Monocytes % 5.8 %; Neutrophils # 11.06 10^3/uL (1.8-7.7); Nucleated Red Blood Cells % 0 %; Platelet Count 159 10^3/cmm (130-400); Red Blood Count 3.92 10^6/uL (4.1-5.3); Red Cell Distribution Width 13.1 % (12.1-15.1); White Blood Count 12.7 10^3/uL (4.0-10.0)
[2022-05-26 05:16] LABS: INR 1.22 (0.8-1.2)
[2022-05-26 05:24] LABS: Alanine Aminotransferase 7 U/L (0-41); Albumin Level 2.7 g/dL (3.5-5.2); Alkaline Phosphatase 60 U/L (40-130); Aspartate Amino Transferase 8 U/L (0-40); Blood Urea Nitrogen 13 mg/dL (6-20); Calcium 8.3 mg/dL (8.5-10.5); Carbon Dioxide 29 mmol/L (22-29); Chloride 99 mmol/L (98-107); Globulin 2.1 g/dL (1.3-4.6); Glomerular Filtration Rate 116.2 mL/min (90-130); Glucose 112 mg/dL (65-115); Magnesium 1.6 mg/dL (1.7-2.3); Osmolality Calculated 285 mOsm/kg (285-295); Phosphorus 2.5 mg/dL (2.5-4.5); Sodium 137 mmol/L (136-145); Total Bilirubin 0.5 mg/dL (0.15-1.2); Total Protein 4.8 g/dL (6.6-8.7)
[2022-05-26 05:42] LABS: Slide Review Slide Review Perform
[2022-05-26] MEDS: lactated ringers 1,000 ML 999 ML IV ×2 (06:23→17:37)
[2022-05-26] MEDS: ciprofloxacin 400 MG/200 ML PREMIX 200 MG IV ×2 (09:23→20:46)
--- NOTE | 2022-05-26 09:37 | P.PN_ITS ---
Subjective Subjective: Patient was seen and evaluated on 6:30 AM today, seems to feel much better in comparison to yesterday and he is less tender on clinical examination. There was a questionable about adequacy of urine output around 600 mL per shift, and NG output around 400 mL bilious. Patient started passing gas. Trending down leukocytosis to 12.7 from 15.9 from 25.1 Chromogranin A was sent per my request due to the potential concern of carcinoid per index radiology input, it is pending. Vitals/I&O/Wt Last Vital Signs Temp 98.3 F 05/26/22 09:14 Pulse 79 05/26/22 09:14 Resp 13 05/26/22 09:14 BP 148/85 05/26/22 09:14 Pulse Ox 98 05/26/22 09:14 O2 Del Method 05/26/22 09:14 05/25/22 05/26/22 05/26/22 22:59 06:59 14:59 Intake Total 2250 / 3287.5 756.25 / 4043.75 1806.25 / 1806.25 Output Total 1420 / 1820 1450 / 3270 Balance 830 / 1467.5 -693.75 / 773.75 1806.25 / 1806.25 Weight last 48 hrs Weight 203 lb 12.8 oz Weight 200 lb 14.4 oz Weight 250 lb Physical Exam Narrative: Patient is conscious alert oriented X3 No apparent distress BMI 29 Head and neck examination PERRLA no masses no cervical lymphadenopathy no jaundice NG in place Cardiac examination audible S1-S2 no murmurs no gallops no arrhythmias Chest is clear bilateral,abscence of Rhonchi or wheezes,no surgical emphysema Abdomen much less tender nondistended soft no organomegaly guarding or rigidity/no signs of peritonitis Extremities no cyanosis no clubbing no edema Data : 05/26/22 04:51 05/26/22 04:51 Micro: Microbiology 05/24/22 23:07 Blood Culture - Preliminary Blood NEGATIVE TO DATE 05/24/22 23:04 Blood Culture - Preliminary Blood NEGATIVE TO DATE A&P Assessment and plan (1) Diverticulitis large intestine: A bolus of 500 mL LR Continue antimicrobial therapy Continue NG to low intermittent wall suction Encourage ambulation Incentive spirometer every hour N.p.o. for now We will continue coordinating care with hospitalist service. Assurance and education All questions have been answered and all concerns have been addressed to patient's satisfaction. 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
--- NOTE | 2022-05-26 16:34 | PC.NURSE ---
Provider at bedside with instructions to start a 500ml bolus of current IV Fluids
--- NOTE | 2022-05-26 21:36 | PM.PN ---
Subjective Subjective: Patient is markedly improved with good pain control. He has no complaints except that he wants to eat. Vitals/I&O/Wt Last Vital Signs Temp 98.5 F 05/26/22 19:44 Pulse 100 05/26/22 21:02 Resp 16 05/26/22 21:02 BP 153/90 05/26/22 19:44 Pulse Ox 95 05/26/22 21:02 O2 Del Method 05/26/22 21:02 05/26/22 05/26/22 05/26/22 06:59 14:59 22:59 Intake Total 756.25 / 4043.75 2358.00 / 2358.00 1286.65 / 3644.65 Output Total 1450 / 3270 125 / 125 600 / 725 Balance -693.75 / 773.75 2233.00 / 2233.00 686.65 / 2919.65 Weight last 48 hrs Weight 92.442 kg Weight 91.127 kg Physical Exam Narrative: NAD Heart regular normal S1-S2 without murmurs clicks gallops or rubs Lungs: Clear to auscultation anteriorly Abdomen: Less distended remains tender but much improved Extremities no clubbing cyanosis or edema Data : 05/26/22 04:51 05/26/22 04:51 Micro: Microbiology 05/24/22 23:07 Blood Culture - Preliminary Blood NEGATIVE TO DATE 05/24/22 23:04 Blood Culture - Preliminary Blood NEGATIVE TO DATE A&P Assessment and plan (1) Pneumatosis intestinalis: Appreciate surgical consultation Status: Ruled-out (2) Diverticulitis: usual tx of abx, IVF and bowel rest Discussed with surgery and will likely attempt diet tomorrow. Status: Acute (3) Partial obstruction of small intestine: per CT report appears at site of sigmoid diverititis NGT and as above Status: Acute (4) Abdominal pain: Pain control is adequate on current regimen now Status: Acute Attestations Medical Necessity Statement*: Requiring inpatient hospitalization passing 2 midnights for treatment of contained perforation of sigmoid diverticulitis and resolution of bowel obstruction Coding Level of Care Code Acute Refiner Operator for [facility] Fwd Diagnoses Pneumatosis intestinalis K63.89 Diverticulitis K57.92 Partial obstruction of small intestine K56.600 Abdominal pain R10.9
[2022-05-26] MEDS: pantoprazole 40 mg SDV IVP (22:21)
[2022-05-27] VITALS (10 sets, daily range): BP systolic 133–158; BP diastolic 68–97; PULSE 72–103; RESP 15–22; TEMP 36.1–37; O2SAT 91–94
[2022-05-27] MEDS: morphine 4 mg/mL SDV 1 mL IVP ×2 (02:14→22:00)
[2022-05-27] MEDS: lactated ringers 1,000 ML 125 ML IV ×3 (03:53→19:58)
[2022-05-27] MEDS: metroNIDAZOLE IV 500 MG/100 ML PREMIX 100 MG IV ×3 (03:54→20:00)
[2022-05-27 05:46] LABS: Basophils # 0.1 10^3/uL (0.0-0.1); Basophils % 0.3 %; Eosinophils % 0.1 %; Hemoglobin 11.5 g/dL (11.7-16.6); Lymphocytes # 0.6 10^3/uL (0.8-4.8); Lymphocytes % 3.9 %; Mean Corpuscular HGB Conc 32.9 g/dL (30.0-36.0); Mean Corpuscular Hemoglobin 29.9 pg (28.0-34.0); Mean Corpuscular Volume 90.9 fl (80-94); Mean Platelet Volume 10.4 fL (7.4-10.4); Monocytes # 1.4 10^3/uL (0.2-0.9); Monocytes % 9.3 %; Neutrophils # 12.73 10^3/uL (1.8-7.7); Neutrophils % 85.9 %; Nucleated Red Blood Cells % 0 %; Platelet Count 245 10^3/cmm (130-400); Red Blood Count 3.85 10^6/uL (4.1-5.3); Red Cell Distribution Width 13.1 % (12.1-15.1); White Blood Count 14.8 10^3/uL (4.0-10.0)
--- NOTE | 2022-05-27 06:00 | XR_ITS ---
WS: [id number] Abdomen series, Flat and upright 05/27/2022 Clinical Data: Bowel obstruction Comparison: CT abdomen pelvis, 05/24/2022. Findings: No free air is seen beneath the diaphragms. No abnormal intra-abdominal masses or calcifica tions are seen. There are dilated small bowel loops throughout the entire abdomen. There is a nasogas tric tube ending in the fundus of the stomach. XR/XR abdomen min 2V [id number] Impression: 1. Small bowel obstruction. 2. Nasogastric tube ends in fundus of the stomach.
[2022-05-27 06:19] LABS: Alanine Aminotransferase 7 U/L (0-41); Albumin Level 2.6 g/dL (3.5-5.2); Alkaline Phosphatase 65 U/L (40-130); Aspartate Amino Transferase 10 U/L (0-40); Blood Urea Nitrogen 16 mg/dL (6-20); Calcium 8.3 mg/dL (8.5-10.5); Carbon Dioxide 28 mmol/L (22-29); Chloride 99 mmol/L (98-107); Globulin 1.9 g/dL (1.3-4.6); Glomerular Filtration Rate 171.4 mL/min (90-130); Glucose 104 mg/dL (65-115); Magnesium 1.9 mg/dL (1.7-2.3); Osmolality Calculated 287 mOsm/kg (285-295); Phosphorus 2.4 mg/dL (2.5-4.5); Sodium 138 mmol/L (136-145); Total Bilirubin 0.4 mg/dL (0.15-1.2); Total Protein 4.5 g/dL (6.6-8.7)
[2022-05-27 06:33] LABS: INR 1.14 (0.8-1.2)
[2022-05-27] MEDS: lactated ringers 1,000 ML 999 ML IV (07:32)
[2022-05-27] MEDS: ciprofloxacin 400 MG/200 ML PREMIX 200 MG IV ×2 (09:00→19:58)
[2022-05-27] MEDS: HYDROmorphone 1 mg/mL INJ 1 mL IVP ×2 (09:00→13:17)
--- NOTE | 2022-05-27 09:13 | PC.NURSE ---
Patient requesting sips/chips Dr. Greer was notified and instructed pt stay on strict NPO due to abdominal xray still showing obstruction. Orders given to advance NG tube tube a few inches and re order xray to confirm placement.
--- NOTE | 2022-05-27 09:37 | XR_ITS ---
WS: [id number] Portable AP spine chest, 05/27/2022 Clinical Data: confirm NG placement Comparison: Portable chest, 05/24/2022. Findings: The nasogastric tube appears to end in the fundus of the stomach. There is patchy opacity i n right lower lobe which is probably effusion, atelectasis and/or pneumonia. The small bowel loops ap pear dilated in the upper abdomen. The heart size is normal. XR/XR chest 1V portable [id number] Impression: 1. Nasogastric tube probably ending in fundus of the stomach. 2. Patchy opacity in right lower lobe consistent with effusion, atelectasis and /or pneumonia. 3. Dilated small bowel loops in upper abdomen.
--- NOTE | 2022-05-27 10:30 | P.PN_ITS ---
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 The KUB was requested by me today and it did show; 1. Small bowel obstruction. 2. Nasogastric tube ends in fundus of the stomach. Patient requesting ice chips but unfortunately is kept n.p.o. to help resolution bowel obstruction Marginal urine output and a liter bolus was given today in the form of LR Medications: Reviewed: Yes Vitals/I&O/Wt Last Vital Signs Temp 98.2 F 05/27/22 07:49 Pulse 99 05/27/22 07:49 Resp 22 H 05/27/22 09:00 BP 145/97 05/27/22 07:49 Pulse Ox 94 05/27/22 07:49 O2 Del Method 05/27/22 07:49 05/26/22 05/27/22 05/27/22 22:59 06:59 14:59 Intake Total 1586.65 / 3944.65 983.35 / 4928.00 1639.583 / 1639.583 Output Total 600 / 725 600 / 1325 175 / 175 Balance 986.65 / 3219.65 383.35 / 3603.00 1464.583 / 1464.583 Weight last 48 hrs Weight 203 lb 12.8 oz Physical Exam Narrative: Patient is conscious alert oriented X3 No apparent distress BMI 29 Head and neck examination PERRLA no masses no cervical lymphadenopathy no jaundice NG in place Cardiac examination audible S1-S2 no murmurs no gallops no arrhythmias Chest fair air entry bilateral Abdomen much less tender non distended soft no organomegaly guarding or rigidity/no signs of peritonitis Extremities no cyanosis no clubbing no edema Data : 05/27/22 04:53 05/27/22 04:53 A&P Assessment and plan (1) Diverticulitis large intestine: Assessment 56 y male w contained perforated sigmoid diverticulitis associated w bowel obstruction responding slowly to conservative managment. Plan Per my personal interpretation of the KUB pattern showing bowel obstruction although I do appreciate gas in the rectal vault likely, patient does have partial bowel obstruction,unfortunately he has been having ice chips and drinking water around his NG tube and I did educate the patient that we will not help with resolution of his inflammatory process. Further education was given about the importance to continue NG to low intermittent wall suction and just have swabs If patient continues to show a pattern of bowel obstruction consideration for PPN would be appropriate Also I did educate the patient that surgical intervention now will not make it smoother for him as he will continue to have an NG and in fact I do not see an urge to perform surgery with a contained perforation responding to antimicrobial therapy and conservative measures yet it would be optimized if the patient were to stay strictly n.p.o. We will continue coordinating care with Dr. Livingston Continue antimicrobial therapy Incentive spirometer every hour particularly there is a concern of atelectasis and concern of pneumonitis towards the right lower lobe, particularly trending up of leukocytosis I will be checking out to Dr. Candelaria over the weekend Assurance and education All questions have been answered and all concerns have been addressed to patient's satisfaction. Status: Acute (2) Partial obstruction of small intestine: Continue NG tube to low intermittent wall suction IV fluid resuscitation May consider PPN tomorrow Status: Acute Attestations Medical Necessity Statement*: Patient requiring inpatient hospitalization passing 2 midnight Time Spent in Patient Care: 16 - 35 minutes Coding Level of Care Code Acute Spun Paste Machine Operator for [facility] Fwd Diagnoses Diverticulitis large intestine K57.32 Partial obstruction of small intestine K56.600
--- NOTE | 2022-05-27 14:22 | P.PN_ITS ---
Subjective Subjective: Patient very upset and uncomfortable. When I went in to see him his neighbor had an acute deterioration and he had to be moved from room. He complained of severe thirst. I gave him some sips of water. is concerned that he has not been urinating. However patient said he was able to urinate after 8 ounces of water. He had no nausea or vomiting NG tube in place. He actually had a bowel movement and is passing gas. I witnessed his bowel movement its liquid and bloody. Vitals/I&O/Wt Last Vital Signs Temp 98.2 F 05/27/22 11:14 Pulse 88 05/27/22 11:14 Resp 18 05/27/22 13:17 BP 145/92 05/27/22 11:14 Pulse Ox 94 05/27/22 11:14 O2 Del Method 05/27/22 11:14 05/26/22 05/27/22 05/27/22 22:59 06:59 14:59 Intake Total 1586.65 / 3944.65 1083.35 / 5028.00 1939.583 / 1939.583 Output Total 600 / 725 600 / 1325 175 / 175 Balance 986.65 / 3219.65 483.35 / 3703.00 1764.583 / 1764.583 Weight last 48 hrs Weight 92.442 kg Physical Exam Narrative: Mild distress due to severe's thirst and the barnes transfer to a new room. Heart regular normal S1-S2 without murmurs clicks gallops or rubs Lungs: Clear to auscultation anteriorly Abdomen: Less distended tenderness now localized to the right lower quadrant. Positive [place] bowel sounds. Extremities no clubbing cyanosis or edema Data : 05/27/22 04:53 05/27/22 04:53 A&P Assessment and plan (1) Pneumatosis intestinalis: Appreciate surgical consultation Status: Ruled-out (2) Diverticulitis: usual tx of abx, IVF and bowel rest except for ice chips and a few sips. Discussed with surgery who states the patient still has an obstruction. Continue NG tube antibiotics and IV fluids. Status: Acute (3) Partial obstruction of small intestine: per CT report appears at site of sigmoid diverititis NGT and as above Status: Acute (4) Abdominal pain: Pain is better controlled. Currently his pain is localized to the right lower quadrant. Status: Acute Plan Patient will shower with . Last staff to provide cardiac chair for comfort for patient to sit up and start to ambulate. Attestations Medical Necessity Statement*: Requiring inpatient hospitalization passing 2 midnights for treatment of contained perforation of sigmoid diverticulitis and resolution of bowel obstruction Coding Level of Care Code Acute Cleaning Supervisor for [facility] Fwd Diagnoses Pneumatosis intestinalis K63.89 Diverticulitis K57.92 Partial obstruction of small intestine K56.600 Abdominal pain R10.9
--- NOTE | 2022-05-27 18:08 | PC.NURSE ---
Patient has put approximately 700cc in clear/pink ng content out in suction canister in approximately 4 hours. NG tube had been mostly removed and had to be fully discontinued. Patient admits to drinking more water then just the sponge. Patient was educated on strict NPO status. All cups/sponges were removed. Bed alarm set. Dr. Greer notified and instructed to keep NG tube out and educate patient on strict NPO status.
[2022-05-27] MEDS: pantoprazole 40 mg SDV IVP (22:00)
[2022-05-28] VITALS: BP 157/90; PULSE 103; RESP 16; TEMP 36.9; O2SAT 92
[2022-05-28 04:00] VITALS: BP 157/101; PULSE 108; RESP 21; TEMP 37.4; O2SAT 92
[2022-05-28] MEDS: metroNIDAZOLE IV 500 MG/100 ML PREMIX 100 MG IV ×3 (05:03→22:25)
[2022-05-28] MEDS: lactated ringers 1,000 ML 125 ML IV ×2 (05:03→15:03)
[2022-05-28 08:00] VITALS: BP 146/90; PULSE 102; RESP 18; TEMP 36.9; O2SAT 93
[2022-05-28] MEDS: ciprofloxacin 400 MG/200 ML PREMIX 200 MG IV ×2 (08:07→20:52)
--- NOTE | 2022-05-28 08:10 | XRR_ITS ---
PROCEDURE INFORMATION: Exam: XR Abdomen Exam date and time: 05/28/2022 11:24 AM Age: 56 years old Clinical indication: Other: Sbo TECHNIQUE: Imaging protocol: Radiologic exam of the abdomen. Views: Frontal supine view of the abdomen. 1 View. COMPARISON: CR XR abdomen min 2V [id number] 05/27/2022 6:07 AM FINDINGS: Gastrointestinal tract: Multiple air-filled dilated small bowel loops consistent with small bowel obstruction. These findings are similar to the prior radiographs. Bones/joints: Unremarkable. XR/XR KUB portable [id number] IMPRESSION: Findings consistent with small bowel obstruction, similar to the prior radiographs.
[2022-05-28 09:42] LABS: Basophils # 0.1 10^3/uL (0.0-0.1); Basophils % 0.2 %; Hematocrit 31.9 % (42.0-52.0); Hemoglobin 10.9 g/dL (11.7-16.6); Lymphocytes # 0.9 10^3/uL (0.8-4.8); Lymphocytes % 4.7 %; Mean Corpuscular HGB Conc 34.2 g/dL (30.0-36.0); Mean Corpuscular Volume 87.9 fl (80-94); Mean Platelet Volume 9.7 fL (7.4-10.4); Monocytes # 2.1 10^3/uL (0.2-0.9); Monocytes % 10.2 %; Neutrophils # 16.62 10^3/uL (1.8-7.7); Neutrophils % 82.6 %; Nucleated Red Blood Cells % 0 %; Platelet Count 246 10^3/cmm (130-400); Red Blood Count 3.63 10^6/uL (4.1-5.3); Red Cell Distribution Width 13.1 % (12.1-15.1); White Blood Count 20.1 10^3/uL (4.0-10.0)
[2022-05-28 10:02] LABS: Anion Gap 15.6 (5-19); Blood Urea Nitrogen 19 mg/dL (6-20); Calcium 7.9 mg/dL (8.5-10.5); Carbon Dioxide 24 mmol/L (22-29); Chloride 101 mmol/L (98-107); Glomerular Filtration Rate 171.4 mL/min (90-130); Glucose 135 mg/dL (65-115); Magnesium 1.9 mg/dL (1.7-2.3); Osmolality Calculated 288 mOsm/kg (285-295); Potassium 3.6 mmol/L (3.5-5.1); Sodium 137 mmol/L (136-145)
--- NOTE | 2022-05-28 10:22 | PM.PN ---
Subjective Subjective: Patient without NG tube. Reports no nausea or emesis. Had 1 large slightly bloody bowel movement Vitals/I&O/Wt Last Vital Signs Temp 98.4 F 05/28/22 08:00 Pulse 102 H 05/28/22 08:00 Resp 18 05/28/22 08:00 BP 146/90 05/28/22 08:00 Pulse Ox 93 05/28/22 08:00 O2 Del Method 05/28/22 04:00 05/27/22 05/28/22 05/28/22 22:59 06:59 14:59 Intake Total 1300 / 3239.583 1100 / 4339.583 200 / 200 Output Total 1350 / 1875 350 / 2225 Balance -50 / 1364.583 750 / 2114.583 200 / 200 Physical Exam Narrative: General: No acute distress awake alert and oriented x3 Abdomen: Soft, distended, mild diffuse tenderness to palpation no guarding rebound or masses Umbilical and bilateral inguinal hernias Data : 05/28/22 09:30 05/28/22 09:30 A&P Assessment and plan (1) Diverticulitis large intestine: Assessment 56 y male w contained perforated sigmoid diverticulitis associated w bowel obstruction responding slowly to conservative managment. He now has tachycardia and higher leukocytosis, but clinically he appears to be improving Plan Clear liquid diet Continue antibiotics Ambulate Medical management per hospitalist Status: Acute (2) Partial obstruction of small intestine: Status: Acute Attestations Medical Necessity Statement*: Patient requires at least 1 more night in the hospital for observation and to slowly advance diet. Patient is currently septic on IV antibiotics Coding Level of Care Code Acute Can Vacuum Tester for [facility] Fwd Diagnoses Diverticulitis large intestine K57.32 Partial obstruction of small intestine K56.600
[2022-05-28 12:00] VITALS: BP 158/94; PULSE 100; RESP 18; TEMP 36.6; O2SAT 93
--- NOTE | 2022-05-28 18:55 | P.PN_ITS ---
Subjective Subjective: NGT removed. Very thankful to be able to drink water and have some clear liquids. Denies any nausea or emesis. His bowel movements are still liquid. However after the bloody bowel movement yesterday it was black and then later brown. Reports no nausea or emesis. Had 1 large slightly bloody bowel movement Vitals/I&O/Wt Last Vital Signs Temp 98 F 05/28/22 12:00 Pulse 100 05/28/22 12:00 Resp 18 05/28/22 12:00 BP 158/94 05/28/22 12:00 Pulse Ox 93 05/28/22 12:00 O2 Del Method 05/28/22 04:00 05/28/22 05/28/22 05/28/22 06:59 14:59 22:59 Intake Total 1100 / 4339.583 1460 / 1460 100 / 1560 Output Total 350 / 2225 250 / 250 Balance 750 / 2114.583 1210 / 1210 100 / 1310 Physical Exam Narrative: Looks much better today. No acute distress denies any pain. Heart regular normal S1-S2 without murmurs clicks gallops or rubs Lungs: Clear to auscultation anteriorly Abdomen: Less distended tenderness now localized to the right lower quadrant. Positive bowel sounds. Extremities no clubbing cyanosis or edema Data : 05/28/22 09:30 05/28/22 09:30 A&P Assessment and plan (1) Diverticulitis: usual tx of abx, IVF and bowel rest except for ice chips and a few sips. Discussed with surgery who states the patient still has an obstruction. Continue NG tube antibiotics and IV fluids. Status: Acute (2) Partial obstruction of small intestine: per CT report appears at site of sigmoid diverticulitis clinically resolved. Status: Resolved (3) Abdominal pain: No IV pain meds since last night. started on po. only one dose. Status: Acute Plan D/W Dr. Candelaria. Attestations Medical Necessity Statement*: Requiring inpatient hospitalization passing 2 midnights for treatment of contained perforation of sigmoid diverticulitis and resolution of bowel obstruction Coding Level of Care Code Acute Establishment Guide for [facility] Fw Diagnoses Diverticulitis K57.92 Partial obstruction of small intestine K56.600 Abdominal pain R10.9
[2022-05-28 20:00] VITALS: BP 142/75; PULSE 104; RESP 14; TEMP 37.8; O2SAT 94
[2022-05-29] VITALS (7 sets, daily range): BP systolic 136–160; BP diastolic 80–88; PULSE 79–101; RESP 14–18; TEMP 36.9–37.7; O2SAT 94–96
[2022-05-29] MEDS: pantoprazole 40 mg SDV IVP ×2 (00:08→23:33)
[2022-05-29 04:44] LABS: Basophils # 0.1 10^3/uL (0.0-0.1); Basophils % 0.4 %; Eosinophils % 0.1 %; Hematocrit 31.6 % (42.0-52.0); Hemoglobin 10.6 g/dL (11.7-16.6); Lymphocytes # 1.5 10^3/uL (0.8-4.8); Lymphocytes % 6.7 %; Mean Corpuscular HGB Conc 33.5 g/dL (30.0-36.0); Mean Corpuscular Hemoglobin 29.7 pg (28.0-34.0); Mean Corpuscular Volume 88.5 fl (80-94); Mean Platelet Volume 9.5 fL (7.4-10.4); Monocytes # 2.2 10^3/uL (0.2-0.9); Monocytes % 9.7 %; Neutrophils # 18.54 10^3/uL (1.8-7.7); Neutrophils % 80.7 %; Nucleated Red Blood Cells % 0.2 %; Platelet Count 271 10^3/cmm (130-400); Red Blood Count 3.57 10^6/uL (4.1-5.3); Red Cell Distribution Width 13.2 % (12.1-15.1)
[2022-05-29 05:04] LABS: Slide Review Slide Review Perform
[2022-05-29 05:09] LABS: Anion Gap 14.4 (5-19); Blood Urea Nitrogen 14 mg/dL (6-20); Calcium 8.1 mg/dL (8.5-10.5); Carbon Dioxide 25 mmol/L (22-29); Chloride 99 mmol/L (98-107); Glomerular Filtration Rate 171.4 mL/min (90-130); Glucose 120 mg/dL (65-115); Osmolality Calculated 282 mOsm/kg (285-295); Potassium 3.4 mmol/L (3.5-5.1); Sodium 135 mmol/L (136-145)
[2022-05-29] MEDS: metroNIDAZOLE IV 500 MG/100 ML PREMIX 100 MG IV ×3 (05:27→22:17)
--- NOTE | 2022-05-29 06:48 | PC.NURSE ---
IV fluids stopped once bag completed per message to nurse order from dr cope
--- NOTE | 2022-05-29 09:19 | CTR_ITS ---
PROCEDURE INFORMATION: Exam: CT Chest Without Contrast; Diagnostic Exam date and time: 05/29/2022 9:51 AM Age: 56 years old Clinical indication: Abdominal pain; Other: Fever TECHNIQUE: Imaging protocol: Diagnostic computed tomography of the chest without contrast. Radiation optimization: All CT scans at this facility use at least one of these dose optimization techniques: automated exposure control; mA and/or kV adjustment per patient size (includes targeted exams where dose is matched to clinical indication); or iterative reconstruction. COMPARISON: CR XR chest 1V portable [id number] 05/27/2022 9:47 AM RADIATION DOSE METRICS: Total DLP (mGy-cm): 1091.37 FINDINGS: Trachea: The airway appears unremarkable. Lungs: There are normal lung volumes. There has been interval development of a small right pleural effusion. Interval development of a large wedge-shaped region of consolidation is seen in the right lower lobe with air bronchograms. This may represent lobar atelectasis or pneumonia. Some minimal scattered ground-glass opacities are also seen in the left lower lobe in bilateral upper lobes. There are no left lung regions of consolidation. Unchanged left lower lobe 2 x 2 mm noncalcified nodule is seen (series 3, image 20). Recommend follow-up per Fleischner society recommendations with optional follow-up. Pleural spaces: No left pleural effusion. No pneumothorax. Heart: The heart size is normal. No significant pericardial effusion. Minimal left coronary arterial atherosclerotic vascular calcifications. Lymph nodes: No enlarged mediastinal lymph nodes. Calcified right paratracheal, right hilar and pretracheal lymph nodes are seen, representing old granulomatous disease. Vasculature: Unremarkable. No aortic aneurysm. Bones/joints: No acute osseous abnormalities seen. Soft tissues: Unremarkable. PROCEDURE INFORMATION: Exam: CT Abdomen And Pelvis Without Contrast Exam date and time: 05/29/2022 9:51 AM Age: 56 years old Clinical indication: Abdominal pain; Other: Fever TECHNIQUE: Imaging protocol: Computed tomography of the abdomen and pelvis without contrast. Radiation optimization: All CT scans at this facility use at least one of these dose optimization techniques: automated exposure control; mA and/or kV adjustment per patient size (includes targeted exams where dose is matched to clinical indication); or iterative reconstruction. COMPARISON: CT angio abdomen pelvis [id number] 05/24/2022 7:48 PM RADIATION DOSE METRICS: Total DLP (mGy-cm): 1091.37 FINDINGS: Liver: The non-contrast enhanced liver appears unremarkable. Gallbladder and bile ducts: Mildly distended gallbladder is seen with gallstones, the largest measuring 1.5 x 1.3 cm. No biliary ductal dilatation. Pancreas: Some fatty atrophic changes of the pancreas are seen. No gross abnormalities on noncontrast imaging. Spleen: The non-contrast enhanced spleen appears unremarkable. A few punctate calcified granulomas are seen. No splenomegaly. Adrenal glands: Unremarkable non-contrast CT appearance of the adrenals. No definte masses. Kidneys and ureters: No contour deforming masses seen on the non-contrast CT. No calcifications. No hydronephrosis or ureterectasis. Stomach and bowel: Moderately fluid distended noncontrast opacified stomach is seen. Severely dilated fluid-filled loops of small bowel are seen in the abdomen and pelvis. Some nondilated terminal ileum/distal ileum bowel loops are seen. These findings may represent adynamic ileus or early/partial small bowel obstruction. Recommend correlation with bowel sound findings. CT after oral contrast may be performed for complete assessment. The noncontrast opacified loops of colon in the abdomen and pelvis show some gas and fecal material in the ascending and proximal transverse colon. The mid to distal transverse colon, descending colon, sigmoid colon and rectum show some regions of fluid. Some sigmoid colonic diverticula are once again seen with some fat stranding and inflammatory changes adjacent to the proximal to mid sigmoid colon, suggestive of diverticulitis. Appendix: The appendix is not well seen on the CT, limiting assessment. Intraperitoneal space: Right perihepatic and right paracolic gutter region air and fluid collection is seen which extends to the right pelvis and right pelvic cul-de-sac. The largest size of the collection is seen in the pelvis with the axial dimensions are 7.8 x 13.1 cm. The craniocaudal extent is approximately 38.5 cm. This is consistent with a large abscess. This has markedly increased in size in correlation with the prior CT. Recommend clinical assessment. Vasculature: No abdominal aortic aneurysm. Some atherosclerotic vascular calcifications are seen. Lymph nodes: No enlarged lymph nodes. Urinary bladder: No bladder debris. No wall thickening. Reproductive: Mildly prominent prostate is seen with some central prostatic calcifications. Bones/joints: No acute osseous abnormality seen. Soft tissues: Medium-sized left inguinal hernia is seen containing some fluid. Unchanged small right inguinal hernia is seen. Hmot-sh-wvulpqhj body wall edema is seen. Unchanged small to medium-sized umbilical hernia is seen, containing peritoneal fat. CT/[place] [id number] IMPRESSION: 1. Interval development of a small right pleural effusion. Interval development of a large wedge-shaped region of consolidation in the right lower lobe with air bronchograms. This may represent lobar atelectasis or pneumonia. Some minimal scattered ground-glass opacities also seen in the left lower lobe in bilateral upper lobes. 2. Unchanged left lower lobe 2 x 2 mm noncalcified nodule (series 3, image 20). Recommend follow-up per Fleischner society recommendations with optional follow-up. IMPRESSION: 1. Right justin-hepatic and right paracolic gutter region air and fluid collection seen which extends to the right pelvis and right pelvic cul-de-sac. The largest size of the collection is seen in the pelvis with the axial dimensions are 7.8 x 13.1 cm. The craniocaudal extent is approximately 38.5 cm. This is consistent with a large abscess. This has markedly increased in size in correlation with the prior CT. Recommend clinical assessment. 2. Some sigmoid colonic diverticula once again seen with some fat stranding and inflammatory changes adjacent to the proximal to mid sigmoid colon, suggestive of diverticulitis. 3. Severely dilated fluid-filled loops of small bowel in the abdomen and pelvis. Some nondilated terminal ileum/distal ileum bowel loops. These findings may represent adynamic ileus or early/partial small bowel obstruction. Recommend correlation with bowel sound findings. CT after oral contrast may be performed for complete assessment. 4. Gallstones. THIS REPORT CONTAINS FINDINGS THAT MAY BE CRITICAL TO PATIENT CARE. The findings were verbally communicated via telephone conference at 10:24 AM CDT on 05/29/2022 with MEGAN LORA. The findings were acknowledged and understood.
[2022-05-29] MEDS: ciprofloxacin 400 MG/200 ML PREMIX 200 MG IV ×2 (09:52→20:03)
--- NOTE | 2022-05-29 12:21 | PM.PN ---
Subjective Subjective: Reports some nausea, noemesis. Multiple brown liquid bowel movements. He reports feeling a little better today. Vitals/I&O/Wt Last Vital Signs Temp 99.1 F 05/29/22 08:00 Pulse 90 05/29/22 08:00 Resp 17 05/29/22 08:00 BP 148/88 05/29/22 08:00 Pulse Ox 95 05/29/22 08:00 O2 Del Method 05/29/22 08:00 05/28/22 05/29/22 05/29/22 22:59 06:59 14:59 Intake Total 1145 / 2605 715 / 3320 Output Total 300 / 550 725 / 1275 Balance 845 / 2054 -2044 Physical Exam Narrative: General: No acute distress awake alert and oriented x3 Abdomen: Soft, distended, mild diffuse tenderness to palpation no guarding rebound or masses Umbilical and bilateral inguinal hernias Data : 05/29/22 04:16 05/29/22 04:16 Micro: Microbiology 05/29/22 10:17 Blood Culture - Preliminary Blood SPECIMEN COLLECTED 05/29/22 10:22 Blood Culture - Preliminary Blood SPECIMEN COLLECTED A&P Assessment and plan (1) Diverticulitis large intestine: Status: Acute (2) Partial obstruction of small intestine: Status: Resolved (3) Intra-abdominal abscess: Status: Acute (4) Sepsis: Status: Acute Plan Continue IV antibiotics Clear liquid diet. N.p.o. after midnight IR consult for intra-abdominal and thoracic drains Patient will need colonoscopy in 6 to 8 weeks No acute surgical intervention unless patient further perforates Attestations Medical Necessity Statement*: Patient requires at least 2 more nights in the hospital for IV antibiotics, IR drain and diet advancement Coding Level of Care Code Acute Director Digital Strategy for [facility] Fwd Diagnoses Diverticulitis large intestine K57.32 Partial obstruction of small intestine K56.600 Intra-abdominal abscess K65.1 Sepsis A41.9
[2022-05-29] MEDS: HYDROcodone-acetaminophen 5-325 mg Tablet 1 TAB PO ×2 (13:16→20:02)
--- NOTE | 2022-05-29 17:05 | PM.PN ---
Subjective Subjective: Patient with some right-sided abdominal pain. Temperature of 100.1 last night. States he feels the same just tired and achy. Vitals/I&O/Wt Last Vital Signs Temp 99.0 F 05/29/22 16:00 Pulse 86 05/29/22 16:00 Resp 17 05/29/22 16:00 BP 136/83 05/29/22 16:00 Pulse Ox 96 05/29/22 16:00 O2 Del Method 05/29/22 16:00 05/29/22 05/29/22 05/29/22 06:59 14:59 22:59 Intake Total 715 / 3320 30 / 30 Output Total 725 / 1275 800 / 800 400 / 1200 Balance -10 / 2045 -770 / -770 -400 / -1170 Physical Exam Narrative: Looks much better today. No acute distress denies any pain. Heart regular normal S1-S2 without murmurs clicks gallops or rubs Lungs: Clear to auscultation anteriorly Abdomen: Less distended tenderness now localized to the right lower quadrant. Positive bowel sounds. Extremities no clubbing cyanosis or edema Data : 05/29/22 04:16 05/29/22 04:16 Micro: Microbiology 05/29/22 10:17 Blood Culture - Preliminary Blood SPECIMEN COLLECTED 05/29/22 10:22 Blood Culture - Preliminary Blood SPECIMEN COLLECTED CT Abd/Pel: Radiologist's impression: CT chest IMPRESSION: 1. Interval development of a small right pleural effusion. Interval development of a large wedge-shaped region of consolidation in the right lower lobe with air bronchograms. This may represent lobar atelectasis or pneumonia. Some minimal scattered ground-glass opacities also seen in the left lower lobe in bilateral upper lobes. 2. Unchanged left lower lobe 2 x 2 mm noncalcified nodule (series 3, image 20). Recommend follow-up per Fleischner society recommendations with optional follow-up. CT abdomen and pelvis IMPRESSION: 1. Right justin-hepatic and right paracolic gutter region air and fluid collection seen which extends to the right pelvis and right pelvic cul-de-sac. The largest size of the collection is seen in the pelvis with the axial dimensions are 7.8 x 13.1 cm. The craniocaudal extent is approximately 38.5 cm. This is consistent with a large abscess. This has markedly increased in size in correlation with the prior CT. Recommend clinical assessment. 2. Some sigmoid colonic diverticula once again seen with some fat stranding and inflammatory changes adjacent to the proximal to mid sigmoid colon, suggestive of diverticulitis. 3. Severely dilated fluid-filled loops of small bowel in the abdomen and pelvis. Some nondilated terminal ileum/distal ileum bowel loops. These findings may represent adynamic ileus or early/partial small bowel obstruction. Recommend correlation with bowel sound findings. CT after oral contrast may be performed for complete assessment. 4. Gallstones. A&P Assessment and plan (1) Diverticulitis: usual tx of abx, IVF and bowel rest except for ice chips and a few sips. Discussed with surgery who states the patient still has an obstruction. Continue NG tube antibiotics and IV fluids. Status: Acute (2) Partial obstruction of small intestine: per CT report appears at site of sigmoid diverticulitis clinically resolved. Status: Resolved (3) Abdominal pain: No IV pain meds since last night. started on po. only one dose. Status: Acute (4) Abdominal abscess: Status: Acute (5) Pleural effusion: Status: Acute Plan Patient's white blood cell count elevated to 23. He had a low-grade temp last night of 100.1. Repeat CT abdomen chest a large abscess on the right. Largest dimension 8 x 13 cm. Craniocaudad extent is approximately [address] Candelaria best treated with IR placing a drain under CT or ultrasound guidance. Also a pleural effusion likely from this abscess. Recommended drainage of the right pleura as well. Patient may eat today he will be n.p.o. tonight for interventional radiology procedure tomorrow. Continue current antibiotics. 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
[2022-05-29 18:37] LABS: Add Urine Microscopic? NO; Charge for UA Resulting for Rev
[2022-05-29 18:53] LABS: Bilirubin Urine Neg (Negative); Blood Urine Neg (Negative); Glucose Urine UA Norm (Normal); Ketones Urine Negative (Negative); Leukocyte Esterase Urine Negative (Negative); Nitrate Urine Negative (Negative); Protein Urine Neg (Negative); Specific Gravity, Urine 1.005 (1.005-1.030); Urine Appearance Clear (CLEAR); Urine Color Yellow (Yellow); Urobilinogen Urine Norm (Negative); pH Urine 6.5 (5-7)
[2022-05-30 04:00] VITALS: BP 161/81; PULSE 97; RESP 17; TEMP 36.9; O2SAT 94
[2022-05-30] MEDS: metroNIDAZOLE IV 500 MG/100 ML PREMIX 100 MG IV ×2 (05:12→14:18)
[2022-05-30 07:14] LABS: Basophils # 0.1 10^3/uL (0.0-0.1); Basophils % 0.4 %; Eosinophils % 0.1 %; Hematocrit 31.8 % (42.0-52.0); Hemoglobin 10.6 g/dL (11.7-16.6); Lymphocytes # 1.9 10^3/uL (0.8-4.8); Lymphocytes % 7.1 %; Mean Corpuscular HGB Conc 33.3 g/dL (30.0-36.0); Mean Corpuscular Hemoglobin 29.8 pg (28.0-34.0); Mean Corpuscular Volume 89.3 fl (80-94); Mean Platelet Volume 9.4 fL (7.4-10.4); Monocytes % 7.7 %; Neutrophils % 80.8 %; Nucleated Red Blood Cells # 0.1 /100WBC; Nucleated Red Blood Cells % 0.3 %; Platelet Count 339 10^3/cmm (130-400); Red Blood Count 3.56 10^6/uL (4.1-5.3); Red Cell Distribution Width 13.5 % (12.1-15.1); White Blood Count 26.2 10^3/uL (4.0-10.0)
[2022-05-30 07:38] LABS: Estmated Average Glucose 88; Hemoglobin A1C 4.7 % (4.0-6.0)
[2022-05-30 07:48] LABS: Folate Level 11.3 ng/mL (4.5-32.2)
[2022-05-30 08:00] VITALS: BP 139/88; PULSE 92; RESP 18; TEMP 36.6; O2SAT 94
[2022-05-30] MEDS: ciprofloxacin 400 MG/200 ML PREMIX 200 MG IV ×2 (08:45→21:19)
[2022-05-30 09:00] LABS: Thyroid Stimulating Hormone 3.87 uIU/mL (0.27-4.20)
[2022-05-30 09:10] LABS: Procalcitonin 1.51 ng/mL (0-0.5); Vitamin B12 1153 pg/mL (232-1245)
[2022-05-30 09:21] LABS: Alanine Aminotransferase 11 U/L (0-41); Albumin Level 2.4 g/dL (3.5-5.2); Alkaline Phosphatase 111 U/L (40-130); Anion Gap 16.7 (5-19); Aspartate Amino Transferase 17 U/L (0-40); Blood Urea Nitrogen 12 mg/dL (6-20); Calcium 7.8 mg/dL (8.5-10.5); Carbon Dioxide 24 mmol/L (22-29); Chloride 98 mmol/L (98-107); Globulin 1.9 g/dL (1.3-4.6); Glomerular Filtration Rate 171.4 mL/min (90-130); Glucose 100 mg/dL (65-115); Iron 13 ug/dL (59-158); Osmolality Calculated 280 mOsm/kg (285-295); Percent Saturation 9.6 % (20-50); Potassium 3.7 mmol/L (3.5-5.1); Sodium 135 mmol/L (136-145); Total Bilirubin 0.4 mg/dL (0.15-1.2); Total Iron Binding Capacity 135 mcg/dl; Total Protein 4.3 g/dL (6.6-8.7); Unsaturated Iron Binding 122 ug/dL (112-347)
--- NOTE | 2022-05-30 11:04 | P.PN_ITS ---
Subjective Subjective: Patient was seen and examined today. Continues to tolerate p.o. intake and passing gas and having bowel movements. On the other hand WBC count increased to 26.[address] of the chest abdomen pelvis was done yesterday that showed worsening picture of the intra-abdominal abscess which is requiring interventional radiology to place a drain or to to decompress that. Patient continues to have stable vital signs and adequate urine output. And shows a low albumin of 2.4 which increases the risk for any potential surgical intervention. Medications: Reviewed: Yes Vitals/I&O/Wt Last Vital Signs Temp 98 F 05/30/22 08:00 Pulse 92 05/30/22 08:00 Resp 18 05/30/22 08:00 BP 139/88 05/30/22 08:00 Pulse Ox 94 05/30/22 08:00 O2 Del Method 05/29/22 16:00 05/29/22 05/30/22 05/30/22 22:59 06:59 14:59 Intake Total 200 / 530 200 / 730 Output Total 900 / 1700 400 / 2100 Balance -700 / -1170 -200 / -1370 Physical Exam Narrative: Patient is conscious alert oriented X3 No apparent distress BMI 29.2 Head and neck examination PERRLA no masses no cervical lymphadenopathy no jaundice Cardiac examination audible S1-S2 no murmurs no gallops no arrhythmias Chest is clear bilateral,abscence of Rhonchi or wheezes,no surgical emphysema Abdomen nontender except slightly towards the right side nondistended soft no organomegaly guarding or rigidity/no signs of peritonitis Umbilical hernia stable exam Extremities no cyanosis no clubbing no edema Data : 05/30/22 06:34 05/30/22 06:34 Micro: Microbiology 05/29/22 10:17 Blood Culture - Preliminary Blood NEGATIVE TO DATE 05/29/22 10:22 Blood Culture - Preliminary Blood NEGATIVE TO DATE 05/24/22 23:04 Blood Culture - Final Blood NO GROWTH AFTER 5 DAYS 05/24/22 23:07 Blood Culture - Final Blood NO GROWTH AFTER 5 DAYS A&P Assessment and plan (1) Diverticulitis large intestine: Assessment 56 y male w contained perforated sigmoid diverticulitis associated increased size of underlying abscess formation Plan Based on history taking physical examination and reviewing the chart and images with my personal interpretation of the CT of the abdomen pelvis certainly the patient will require interventional radiology to drain the abscesses and the fluid collections. To allow nutrition optimization and sepsis control. I am very concerned about any potential surgical intervention that carries a higher risk of exploratory laparotomy if the case were to start by diagnostic laparoscopy due to the potential distended bowel loops, and likely the patient will end up by a colostomy with sigmoid colectomy, in the presence of low albumin of 2.4 there is always a high risk of wound dehiscence, receding of the colostomy, surgical site infection and prolonged hospitalization. I do prefer at this point in the absence of peritonitis and pneumoperitoneum to have IR place drain or two for appropriate damage control and certainly the patient would benefit from a full colonoscopy down the road and potential sigmoid colectomy. I was told by Dr. Lo our radiologist that the CT scan new machine is available but the team is not trained yet to work on it with the fluoroscopy part and it will take weeks before they get the training completed and subsequently an attempt with an ultrasound would be probably the next step. She is not putting higher hopes on that though. Meanwhile Dr. Sanders kindly will start on potential transferring the patient to a higher level of care with the have interventional radiology service available with CT-guided and patient and his spouse were well updated about the plan of care and understand that any surgical intervention at this point would carry higher risk of complications. Through the day I did receive a phone call from Dr. Lo that she attempted to perform an ultrasound-guided drainage which was not technically able to do that and she recommended a CT-guided drainage at another facility. I went back and I updated the patient with this information which she already has been informed by radiology department and I was able to discuss more in depth and in length with the patient his spouse about the potential need for higher level of care to obtain the CT-guided drainage and in spite of that he may still require surgery even after the drains being placed. There is always a concern about potential colon cancer underlying sigmoid pathology. I do appreciate Dr. Bernal's efforts Assurance and education All questions have been answered and all concerns have been addressed to patient's satisfaction. Status: Acute (2) Partial obstruction of small intestine: Condition resolved and patient is tolerating p.o. 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
--- NOTE | 2022-05-30 11:51 | US_ITS ---
WS: [id number] Limited abdomen ultrasound. HISTORY: Evaluate abdominal abscess cavities for possible drainage by ultrasound. Ultrasound is directed over the mid to RIGHT lower abdomen and also along the RIGHT paracolic gutter. These abscesses are not identifiable as they are filled with air and debris. As the ultrasound canno t penetrate the air these collections cannot be identified with any reliability. US/US abdomen limited [id number] IMPRESSION: 1. Cannot accurately identify any abscess cavities by ultrasound. 2. Unfortunately CT drainage capability is not available at this time at [facility]. F feroz evaluation by surgical debridement or CT drainage at another facility ma y be necessary. Notified Dr. Figueroa at 05/30/2022 1:11 PM.
[2022-05-30 12:00] VITALS: BP 151/83; PULSE 95; RESP 18; TEMP 37.1; O2SAT 96
[2022-05-30] MEDS: HYDROcodone-acetaminophen 5-325 mg Tablet 1 TAB PO ×2 (14:18→20:28)
[2022-05-30 15:50] VITALS: BP 141/81; PULSE 88; TEMP 36.8; O2SAT 92
--- NOTE | 2022-05-30 16:41 | P.TS_ITS ---
Transfer Summary Providers Date of Admission: 05/24/22 21:20 Date of Discharge/Transfer: 05/30/22 Attending Provider at Admission: Aron Mcgovern MD Attending Provider at Transfer: Burak Simms MD Transfer Plans: Anticipated date of transfer: 05/30/22 . Receiving Facility: [facility] . Receiving Provider: Dr. Gonzalez . Diagnoses at Discharge Discharge Diagnosis (1) Diverticulitis large intestine: Status: Acute (2) Partial obstruction of small intestine: Status: Resolved Reason for Visit Reason for Visit abdomen pain and back pain Hospital Course Hospital Course Mr. Aman Villa is a pleasant 56 year old male presents to the ER with worsening abdominal pain mostly in the center of his abdomen since yesterday afternoon patient reports that the pain is being sharp and referred to the back and nothing seems to make it better or worse, reports also history of bleeding per rectum that has been intermittent.? Which is nothing new to him.? His last colonoscopy was 20 years ago and nothing is remarkable about it per his description. On admission patient was found to have diverticulitis, small bowel obstruction along with localized loculated perforation. He was started on broad-spectrum antibiotics. Surgery was consulted. He remained hemodynamically stable, afebrile. Patient has been able to tolerate oral liquid diet along with passing flatus and bowel movements. As patient continued to have worsening leukocytosis along with bloating he underwent repeat CT scan on 05/29 which showed large right paracolic gutter abscess with detail CT scan report as below. As per surgical team patient requires IR drainage for further management. Patient was started on PPN during hospitalization. His hospital stay was otherwise unremarkable. Care were discussed with on-call radiologist. Unfortunately CT-guided IR was not available currently hence transfer was sought. Patient has been accepted by Dr. Coker at [facility] and is being transferred in hemodynamically stable condition. Physical Exam Narrative: Looks much better today. No acute distress denies any pain. Heart regular normal S1-S2 without murmurs clicks gallops or rubs Lungs: Clear to auscultation anteriorly Abdomen: Less distended tenderness now localized to the right lower quadrant. Positive bowel sounds. Extremities no clubbing cyanosis or edema TS Data Studies Completed and Pending Pending at discharge Category Date Time Status Blood Culture Stat Lab 05/29/22 10:17 Results Body Fluid Culture & GS Routine Lab 05/30/22 08:00 Uncollected Chromogranin A LC/MS/MS Routine Lab 05/26/22 05:00 Received Lipid Profile w/VLDL Routine Lab 05/31/22 04:00 Ordered Labs from last 24 hours 05/30/22 05/30/22 05/30/22 06:34 06:34 06:34 WBC 26.2 H RBC 3.56 L Hgb 10.6 L Hct 31.8 L MCV 89.3 MCH 29.8 MCHC 33.3 RDW 13.5 Plt Count 339 MPV 9.4 Neut % (Auto) 80.8 Lymph % (Auto) 7.1 [place] % (Auto) 7.7 Eos % (Auto) 0.1 Baso % (Auto) 0.4 Neut # (Auto) 21.20 H Lymph # (Auto) 1.9 [place] # (Auto) 2.0 H Eos # (Auto) 0.0 Baso # (Auto) 0.1 Nucleated RBC % (auto) 0.3 Nucleated RBCs # 0.1 Sodium Potassium Chloride Carbon Dioxide Anion Gap BUN Creatinine GFR Calculation Glucose Estimat Average Glucose 88 Hemoglobin A1c 4.7 Calculated Osmolality Calcium Iron TIBC % Saturation Unsat Iron Binding Total Bilirubin AST ALT Alkaline Phosphatase Total Protein Albumin Globulin Vitamin B12 Folate Procalcitonin TSH 3.87 Urine Color Urine Appearance Urine pH Ur Specific [place] Urine Protein Urine Glucose (UA) Urine Ketones Urine Blood Urine Nitrate Urine Bilirubin Urine Urobilinogen Ur Leukocyte Esterase 05/30/22 05/30/22 05/29/22 06:34 06:34 18:10 WBC RBC Hgb Hct MCV MCH MCHC RDW Plt Count MPV Neut % (Auto) Lymph % (Auto) [place] % (Auto) Eos % (Auto) Baso % (Auto) Neut # (Auto) Lymph # (Auto) [place] # (Auto) Eos # (Auto) Baso # (Auto) Nucleated RBC % (auto) Nucleated RBCs # Sodium 135 L Potassium 3.7 Chloride 98 Carbon Dioxide 24 Anion Gap 16.7 BUN 12 Creatinine 0.5 L GFR Calculation 171.4 H Glucose 100 Estimat Average Glucose Hemoglobin A1c Calculated Osmolality 280 L Calcium 7.8 L Iron 13 L TIBC 135 % Saturation 9.6 L Unsat Iron Binding 122 Total Bilirubin 0.4 AST 17 ALT 11 Alkaline Phosphatase 111 Total Protein 4.3 L Albumin 2.4 L Globulin 1.9 Vitamin B12 1153 Folate 11.3 Procalcitonin 1.51 H TSH Urine Color Yellow Urine Appearance Clear Urine pH 6.5 Ur Specific [place] 1.005 Urine Protein Neg Urine Glucose (UA) Norm Urine Ketones Negative Urine Blood Neg Urine Nitrate Negative Urine Bilirubin Neg Urine Urobilinogen Norm Ur Leukocyte Esterase Negative Completed Studies During Hospitalization Category Date Time Status CT chest abdomen pelvis [[place] [id number] Cat Scan 05/29/22 09:19 Completed ] Stat CTA abdomen pelvis [CT angio abdomen pelvis 56111] Stat Cat Scan 05/24/22 19:19 Completed XR KUB portable [id number] Routine Exams 05/28/22 08:10 Completed XR abdomen min 2V [id number] Routine Exams 05/27/22 06:00 Completed XR chest 1V portable [id number] Stat Exams 05/24/22 22:38 Completed XR chest 1V portable [id number] Stat Exams 05/27/22 09:37 Completed US abdomen limited [id number] Routine Ultrasound 05/30/22 11:51 Completed Laboratory Last Values WBC 26.2 10^3/uL (4.0-10.0) H 05/30/22 06:34 RBC 3.56 10^6/uL (4.1-5.3) L 05/30/22 06:34 Hgb 10.6 g/dL (11.7-16.6) L 05/30/22 06:34 Hct 31.8 % (42.0-52.0) L 05/30/22 06:34 MCV 89.3 fl (80-94) 05/30/22 06:34 MCH 29.8 pg (28.0-34.0) 05/30/22 06:34 MCHC 33.3 g/dL (30.0-36.0) 05/30/22 06:34 RDW 13.5 % (12.1-15.1) 05/30/22 06:34 Plt Count 339 10^3/cmm (130-400) 05/30/22 06:34 MPV 9.4 fL (7.4-10.4) 05/30/22 06:34 Neut % (Auto) 80.8 % 05/30/22 06:34 Lymph % (Auto) 7.1 % 05/30/22 06:34 [place] % (Auto) 7.7 % 05/30/22 06:34 Eos % (Auto) 0.1 % 05/30/22 06:34 Baso % (Auto) 0.4 % 05/30/22 06:34 Neut # (Auto) 21.20 10^3/uL (1.8-7.7) H 05/30/22 06:34 Lymph # (Auto) 1.9 10^3/uL (0.8-4.8) 05/30/22 06:34 [place] # (Auto) 2.0 10^3/uL (0.2-0.9) H 05/30/22 06:34 Eos # (Auto) 0.0 10^3/uL (0.0-0.8) 05/30/22 06:34 Baso # (Auto) 0.1 10^3/uL (0.0-0.1) 05/30/22 06:34 Nucleated RBC % (auto) 0.3 % 05/30/22 06:34 Nucleated RBCs # 0.1 /100WBC 05/30/22 06:34 PT 14.90 SECONDS (12.1-14.9) 05/27/22 04:53 INR 1.14 (0.8-1.2) 05/27/22 04:53 APTT 17.2 SECONDS (23.9-36.7) L 05/24/22 19:43 Sodium 135 mmol/L (136-145) L 05/30/22 06:34 Potassium 3.7 mmol/L (3.5-5.1) 05/30/22 06:34 Chloride 98 mmol/L (98-107) 05/30/22 06:34 Carbon Dioxide 24 mmol/L (22-29) 05/30/22 06:34 Anion Gap 16.7 (5-19) 05/30/22 06:34 BUN 12 mg/dL (6-20) 05/30/22 06:34 Creatinine 0.5 mg/dL (0.7-1.2) L 05/30/22 06:34 GFR Calculation 171.4 mL/min (90-130) H 05/30/22 06:34 Glucose 100 mg/dL (65-115) 05/30/22 06:34 Estimat Average Glucose 88 05/30/22 06:34 Hemoglobin A1c 4.7 % (4.0-6.0) 05/30/22 06:34 Calculated Osmolality 280 mOsm/kg (285-295) L 05/30/22 06:34 Lactate 1.6 mmol/L (0.5-2.2) 05/24/22 18:34 Calcium 7.8 mg/dL (8.5-10.5) L 05/30/22 06:34 Phosphorus 2.4 mg/dL (2.5-4.5) L 05/27/22 04:53 Magnesium 1.9 mg/dL (1.7-2.3) 05/28/22 09:30 Iron 13 ug/dL (59-158) L 05/30/22 06:34 TIBC 135 mcg/dl 05/30/22 06:34 % Saturation 9.6 % (20-50) L 05/30/22 06:34 Unsat Iron Binding 122 ug/dL (112-347) 05/30/22 06:34 Total Bilirubin 0.4 mg/dL (0.15-1.2) 05/30/22 06:34 AST 17 U/L (0-40) 05/30/22 06:34 ALT 11 U/L (0-41) 05/30/22 06:34 Alkaline Phosphatase 111 U/L (40-130) 05/30/22 06:34 C-Reactive Protein 284.4 mg/L (0.0-4.9) H 05/24/22 18:54 NT-Pro-B Natriuret Pep 71 pg/mL (0-125) 05/25/22 05:22 Total Protein 4.3 g/dL (6.6-8.7) L 05/30/22 06:34 Albumin 2.4 g/dL (3.5-5.2) L 05/30/22 06:34 Globulin 1.9 g/dL (1.3-4.6) 05/30/22 06:34 Lipase 8 U/L (13-60) L 05/24/22 18:54 Carcinoembryonic Ag 5.5 ng/mL (0.0-4.7) H 05/25/22 05:22 Vitamin B12 1153 pg/mL (232-1245) 05/30/22 06:34 Folate 11.3 ng/mL (4.5-32.2) 05/30/22 06:34 Procalcitonin 1.51 ng/mL (0-0.5) H 05/30/22 06:34 TSH 3.87 uIU/mL (0.27-4.20) 05/30/22 06:34 Urine Color Yellow (Yellow) 05/29/22 18:10 Urine Appearance Clear (CLEAR) 05/29/22 18:10 Urine pH 6.5 (5-7) 05/29/22 18:10 Ur Specific [place] 1.005 (1.005-1.030) 05/29/22 18:10 Urine Protein Neg (Negative) 05/29/22 18:10 Urine Glucose (UA) Norm (Normal) 05/29/22 18:10 Urine Ketones Negative (Negative) 05/29/22 18:10 Urine Blood Neg (Negative) 05/29/22 18:10 Urine Nitrate Negative (Negative) 05/29/22 18:10 Urine Bilirubin Neg (Negative) 05/29/22 18:10 Urine Urobilinogen Norm mg/dL (Negative) 05/29/22 18:10 Ur Leukocyte Esterase Negative (Negative) 05/29/22 18:10 Urine RBC 0-4 /hpf (0-2) H 05/24/22 21:10 Urine WBC 0-4 /hpf (0-5) H 05/24/22 21:10 Ur Squamous Epith Cells 0-4 /hpf (0-5) H 05/24/22 21:10 Amorphous Sediment Not Reportable 05/24/22 21:10 Urine Bacteria Trace /hpf (NONE) 05/24/22 21:10 Urine Mucus Trace /hpf 05/24/22 21:10 Urine Sperm 1+ /hpf 05/24/22 21:10 Radiology Impressions Abdomen/Pelvis CTA 05/24/22 19:19 IMPRESSION: 1. Sigmoid diverticulitis with matted loops of bowel. There is pneumatosis of bowel and colon and a probable loculated perforation. No gas in the portal vein or hepatic portal venous radicles. Underlying neoplasm may present a similar picture. 2. Partial small bowel obstruction with the point of transition in the pelvis at the site of diverticulitis. Other causes of obstruction such as intermittent or partial closed loop obstruction not excluded. 3. There is a bvdp-lf-skldnbyr amount of dense free fluid in the abdomen that may represent blood. 4. Bilateral inguinal hernias with a segment of descending colon and proximal sigmoid in the left inguinal hernia without evidence of obstruction. 5. Moderate recurrent umbilical hernia. 6. Cholelithiasis without acute cholecystitis. THIS REPORT CONTAINS FINDINGS THAT MAY BE CRITICAL TO PATIENT CARE. The findings were verbally communicated via telephone conference with ZACHARIAH ACUNA at 9:17 PM CDT on 05/24/2022. The findings were acknowledged and understood. ADDENDUM: 05/24/22 1726 A 2nd review of the images was done in conference with . This is to clarify that the gas bubbles seen in the pelvis are likely related to diverticulitis with contained perforation and gas in the bowel and colonic lumen rather than pneumatosis. Abdomen X-Ray 05/27/22 06:00 Impression: 1. Small bowel obstruction. 2. Nasogastric tube ends in fundus of the stomach. Chest X-Ray 05/27/22 09:37 Impression: 1. Nasogastric tube probably ending in fundus of the stomach. 2. Patchy opacity in right lower lobe consistent with effusion, atelectasis and/or pneumonia. 3. Dilated small bowel loops in upper abdomen. KUB X-Ray 05/28/22 08:10 IMPRESSION: Findings consistent with small bowel obstruction, similar to the prior radiographs. Chest/Abdomen/Pelvis CT 05/29/22 09:19 IMPRESSION: 1. Interval development of a small right pleural effusion. Interval development of a large wedge-shaped region of consolidation in the right lower lobe with air bronchograms. This may represent lobar atelectasis or pneumonia. Some minimal scattered ground-glass opacities also seen in the left lower lobe in bilateral upper lobes. 2. Unchanged left lower lobe 2 x 2 mm noncalcified nodule (series 3, image 20). Recommend follow-up per Fleischner society recommendations with optional follow-up. IMPRESSION: 1. Right justin-hepatic and right paracolic gutter region air and fluid collection seen which extends to the right pelvis and right pelvic cul-de-sac. The largest size of the collection is seen in the pelvis with the axial dimensions are 7.8 x 13.1 cm. The craniocaudal extent is approximately 38.5 cm. This is consistent with a large abscess. This has markedly increased in size in correlation with the prior CT. Recommend clinical assessment. 2. Some sigmoid colonic diverticula once again seen with some fat stranding and inflammatory changes adjacent to the proximal to mid sigmoid colon, suggestive of diverticulitis. 3. Severely dilated fluid-filled loops of small bowel in the abdomen and pelvis. Some nondilated terminal ileum/distal ileum bowel loops. These findings may represent adynamic ileus or early/partial small bowel obstruction. Recommend correlation with bowel sound findings. CT after oral contrast may be performed for complete assessment. 4. Gallstones. THIS REPORT CONTAINS FINDINGS THAT MAY BE CRITICAL TO PATIENT CARE. The findings were verbally communicated via telephone conference at 10:24 AM CDT on 05/29/2022 with MEGAN LORA. The findings were acknowledged and understood. Abdomen Ultrasound 05/30/22 11:51 IMPRESSION: 1. Cannot accurately identify any abscess cavities by ultrasound. 2. Unfortunately CT drainage capability is not available at this time at [facility]. Further evaluation by surgical debridement or CT drainage at another facility may be necessary. Notified Dr. Figueroa at 05/30/2022 1:11 PM. Microbiology 05/30/22 06:28 Nose MRSA Culture - Final 05/29/22 10:17 Blood Blood Culture - Preliminary NEGATIVE TO DATE 05/29/22 10:22 Blood Blood Culture - Preliminary NEGATIVE TO DATE 05/24/22 23:04 Blood Blood Culture - Final NO GROWTH AFTER 5 DAYS 05/24/22 23:07 Blood Blood Culture - Final NO GROWTH AFTER 5 DAYS Recent Clincial Data Last Vital Signs Temp 98.2 F 05/30/22 15:50 Pulse 88 05/30/22 15:50 Resp 18 05/30/22 12:00 BP 141/81 05/30/22 15:50 Pulse Ox 92 05/30/22 15:50 O2 Del Method 05/29/22 16:00 Vital Signs Temp Pulse Resp BP Pulse Ox 05/30/22 15:50 98.2 F 88 141/81 92 05/30/22 12:00 98.7 F 95 18 151/83 96 05/30/22 08:00 98 F 92 18 139/88 94 Intake & Output/Weight 05/28/22 05/29/22 05/30/22 05/31/22 06:59 06:59 06:59 06:59 Intake Total 4339.583 / 4339.583 3320 / 3320 730 / 730 Output Total 2225 / 2225 1275 / 1275 2100 / 2100 Balance 2114.583 / 2114.583 2045 / 2045 -1370 / -1370 Vitals Last Vital Signs Temp 98.2 F 05/30/22 15:50 Pulse 88 05/30/22 15:50 Resp 18 05/30/22 12:00 BP 141/81 05/30/22 15:50 Pulse Ox 92 05/30/22 15:50 O2 Del Method 05/29/22 16:00 TS Medications Medications Acetaminophen (Acetaminophen 325 Mg Tablet) 650 mg PO Q6H PRN PRN Reason: Mild/Mod Pain Or Temp >/= 101 Hydrocodone Bitart/Acetaminophen (Hydrocodone-Acetaminophen 5-325 Mg Tablet) 1 tab PO Q4H PRN PRN Reason: MODERATE PAIN Last Admin: 05/30/22 14:18 Dose: 1 tab Ferrous Gluconate (Ferrous Gluconate 324 Mg Tablet) 324 mg PO BIDWM THALIA Metronidazole (Flagyl Iv) 500 mg in 100 mls @ 100 mls/hr IV Q8H THALIA; Protocol Last Admin: 05/30/22 14:18 Dose: 100 mls/hr Ciprofloxacin/Dextrose (Cipro) 400 mg in 200 mls @ 200 mls/hr IV Q12H THALIA; Protocol Last Admin: 05/30/22 08:45 Dose: 200 mls/hr Multivitamins 10 ml/ Amino (Acids/Electrolytes) 1,010 mls @ 42 mls/hr IV .Q24H THALIA; Protocol Last Admin: 05/30/22 15:44 Dose: 12 mls/hr Fat Emulsion Intravenous (Intralipid 20%) 250 mls @ 20.833 mls/hr IV Q24H THALIA Last Admin: 05/30/22 15:48 Dose: 20.83 mls/hr Morphine Sulfate (Morphine 4 Mg/Ml Sdv 1 Ml) 1 mg IVP Q4H PRN PRN Reason: PAIN Ondansetron HCl (Ondansetron 2 Mg/Ml Sdv 2 Ml) 4 mg IVP Q6H PRN PRN Reason: NAUSEA AND VOMITING Last Admin: 05/25/22 11:27 Dose: 4 mg Pantoprazole Sodium (Pantoprazole 40 Mg Sdv) 40 mg IVP Q24H THALIA Last Admin: 05/29/22 23:33 Dose: 40 mg Discontinued Medications Hydromorphone HCl (Hydromorphone 1 Mg/Ml Inj 1 Ml) 0.5 mg IVP ONCE ONE Stop: 05/24/22 18:51 Last Admin: 05/24/22 19:00 Dose: 0.5 mg Hydromorphone HCl (Hydromorphone 1 Mg/Ml Inj 1 Ml) 0.5 mg IVP ONCE ONE Stop: 05/24/22 18:52 Last Admin: 05/24/22 21:06 Dose: Not Given Hydromorphone HCl (Hydromorphone 1 Mg/Ml Inj 1 Ml) 1 mg IVP ONCE ONE Stop: 05/24/22 21:30 Last Admin: 05/24/22 21:43 Dose: 1 mg Hydromorphone HCl (Hydromorphone 1 Mg/Ml Inj 1 Ml) 1 mg IVP Q1H PRN PRN Reason: MODERATE TO SEVERE PAIN Last Admin: 05/27/22 13:17 Dose: 1 mg Sodium Chloride (Sodium Chloride 0.9%) 1,000 mls @ 999 mls/hr IV .Q1H1M ONE Stop: 05/24/22 19:48 Last Infusion: 05/24/22 23:23 Dose: Infused Cefepime HCl 1,000 mg/ Sodium (Chloride) 50 mls @ 100 mls/hr IV ONCE ONE; Protocol Stop: 05/24/22 20:40 Last Infusion: 05/24/22 23:23 Dose: Infused Metronidazole (Flagyl Iv) 500 mg in 100 mls @ 100 mls/hr IV ONCE ONE Stop: 05/24/22 21:10 Last Infusion: 05/24/22 23:23 Dose: Infused Ciprofloxacin/Dextrose (Cipro) 400 mg in 200 mls @ 200 mls/hr IV BID ONE; Protocol Stop: 05/24/22 21:23 Last Infusion: 05/24/22 23:23 Dose: Infused Lactated Ringer's (Lactated Ringers) 1,000 mls @ 50 mls/hr IV .Q20H THALIA Last Infusion: 05/29/22 06:47 Dose: Infused Lactated Ringer's (Lactated Ringers) 1,000 mls @ 999 mls/hr IV .Q1H1M ONE Stop: 05/25/22 13:14 Last Infusion: 05/25/22 22:23 Dose: Infused Lactated Ringer's (Lactated Ringers) 1,000 mls @ 999 mls/hr IV .Q1H1M ONE Stop: 05/26/22 07:18 Last Infusion: 05/26/22 07:24 Dose: Infused Magnesium Sulfate 4 gm/ Sodium (Chloride) 108 mls @ 108 mls/hr IV ONCE ONE Stop: 05/26/22 09:59 Last Infusion: 05/26/22 10:44 Dose: Infused Lactated Ringer's (Lactated Ringers) 1,000 mls @ 999 mls/hr IV .Q1H1M ONE Stop: 05/27/22 07:56 Last Infusion: 05/27/22 08:33 Dose: Infused Iohexol (Iohexol 350 Mg/Ml 100 Ml Btl) 0 ml IV ONCE ONE Stop: 05/24/22 20:04 Last Admin: 05/24/22 20:03 Dose: 95 ml Morphine Sulfate (Morphine 4 Mg/Ml Sdv 1 Ml) 4 mg IVP ONCE ONE Stop: 05/24/22 18:49 Last Admin: 05/24/22 21:05 Dose: Not Given Morphine Sulfate (Morphine 4 Mg/Ml Sdv 1 Ml) 2 mg IVP Q2H PRN PRN Reason: PAIN Last Admin: 05/25/22 10:14 Dose: 2 mg Morphine Sulfate (Morphine 4 Mg/Ml Sdv 1 Ml) 4 mg IVP Q2H PRN PRN Reason: PAIN Last Admin: 05/27/22 22:00 Dose: 4 mg Morphine Sulfate (Morphine 4 Mg/Ml Sdv 1 Ml) 10 mg IVP ONCE STA Stop: 05/25/22 10:40 Last Admin: 05/25/22 11:27 Dose: 10 mg Ondansetron HCl (Ondansetron 2 Mg/Ml Sdv 2 Ml) 4 mg IVP ONCE ONE Stop: 05/24/22 19:06 Last Admin: 05/24/22 19:22 Dose: 4 mg Ondansetron HCl (Ondansetron 2 Mg/Ml Sdv 2 Ml) 4 mg IVP ONCE ONE Stop: 05/24/22 19:09 Last Admin: 05/24/22 21:06 Dose: Not Given Allergies Penicillins Allergy (Verified 05/24/22 18:21) ALGY-Anaphylaxis Home Medications multivitamin 1 tab PO DAILY 05/24/22 [History Confirmed 05/25/22] aspirin 81 mg chewable tablet 81 mg PO DAILY 05/25/22 [History Confirmed 05/25/22] cetirizine 10 mg tablet (Zyrtec) 10 mg PO DAILY PRN Allergy Symptoms 05/25/22 [History Confirmed 05/25/22] omeprazole 20 mg capsule,delayed release 20 mg PO DAILY 05/25/22 [History Confirmed 05/25/22] Discharge Plan Discharge Patient Disposition: Xfer Other Condition: Stable Prescriptions: No Action multivitamin Tablet 1 tab PO DAILY Zyrtec 10 mg Tablet 10 mg PO DAILY PRN (Reason: Allergy Symptoms) omeprazole 20 mg Capsule,Delayed Release(Dr/Ec) 20 mg PO DAILY aspirin 81 mg Tablet,Chewable 81 mg PO DAILY Discharge Orders: Transfer Out of Facility (Order); Ordered 05/30/22 Ordered By: Burak Simms Discharge Diet: Clear Liquid Discharge Activity: Resume usual activity Patient Instructions: Opioid Safety Transfer Attestations Time Spent in Transfer Care: greater than 30 min Specific Discharge Activities: educating patient, educating and/or supporting family/caregiver, discussing with pcp/other providers, documenting/other paperwork and evaluating patient/reviewing data Status at Transfer: Cognitive status at transfer: cognitively intact ; Behavioral status at transfer: cooperative ; Functional status at transfer: independent ambulation ; Overall status at transfer: patient is not back to baseline Quality Metrics Clinical Quality Measures [ No reported AMI, CVA or VTE this stay] Coding Level of Care Code Acute Call Centre Supervisor for [facility] Fwd Diagnoses Diverticulitis large intestine K57.32 Partial obstruction of small intestine K56.600
[2022-05-30] MEDS: ferrous gluconate 324 mg Tablet PO (18:36)
[2022-05-30 20:00] VITALS: BP 137/80; PULSE 93; RESP 17; TEMP 36.6; O2SAT 95
--- NOTE | 2022-05-30 21:52 | PC.NURSE ---
Pt being transferred to [facility]. LENA Barry on day shift called report before leaving. 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
[2022-05-31 17:12] LABS: Chromogranin A LC/MS/MS 234 ng/mL (ADULTS: <311)
== END 2022-05-30 22:00 | disposition short-term general hospital (02) | DRG 391 ==
LOC: ER 21:22 → MEDSURG 05-25 06:50
PROVIDERS: Internal Medicine; Physician Assistant; Surgery; Admitting Provider Family Medicine; Emergency Provider Emergency Medicine; Visit Provider Student in an Organized Health Care Education/Training Program
DX: K57.20 Diverticulitis of large intestine with perforation and abscess without bleeding (principal); K66.1 Hemoperitoneum; J90 Pleural effusion, not elsewhere classified; K56.600 Partial intestinal obstruction, unspecified as to cause; K40.90 Unilateral inguinal hernia, without obstruction or gangrene, not specified as recurrent; K80.80 Other cholelithiasis without obstruction; Z87.891 Personal history of nicotine dependence; K63.89 Other specified diseases of intestine; Z79.82 Long term (current) use of aspirin
CPT/HCPCS: 36415; 71045; 71250; 74018; 74019; 74174; 74176; 76705; 80048; 80053; 81001; 81003; 82378; 82607; 82746; 83036; 83540; 83550; 83605; 83690; 83735; 83880; 84100; 84145; 84443; 85025; 85610; 85730; 86140; 86316; 87040; 87641; 94664; 96365; 96366; 96367; 96375; 96376; 99291; C9113; J0692; J0744; J1170; J2270; J2405; J3475; J7030; Q9967; S0030

== ENCOUNTER 2024-05-20 09:44 | Outpatient (CLI) | payer OTHER, SELFPAY ==
--- NOTE | 2024-05-20 09:52 | XR_ITS ---
WS: [id number] Examination: XR knee LT 1-2V [id number] Reason for Exam: L KNEE PAIN Date: May 20, 2024 Comparison: None. Findings: The bone density is maintained. There is no destruction. There is no fracture or dislocation. No joint effusion is seen. There is mild narrowing to the medial joint space. Small marginal patellar osteophytes are identified . XR/XR knee LT 1-2V [id number] IMPRESSION: Mild degenerative changes are present without acute bony abnormality.
== END 2024-05-20 09:45 | disposition home or self-care (01) ==
LOC: RAD 09:49
PROVIDERS: PCP Family Medicine; Visit Provider Dermatology Procedural Dermatology
DX: Z02.71 Encounter for disability determination (principal); M25.762 Osteophyte, left knee
CPT/HCPCS: 73560